=== PATIENT | female | born 1990 | race American Indian/Alaskan Native ===

== ENCOUNTER 2016-12-26 09:51 | Emergency (ER) | payer MEDICAID, OTHER ==
[2016-12-26 10:11] VITALS: BP 119/71
--- NOTE | 2016-12-26 12:21 | XRay Report ---
FACIAL BONES, 4 views: History: Left facial swelling. Multiple views of the facial bones fail to show any fractures or other bony abnormalities. The maxillary sinuses are clear. IMPRESSION: Normal study.
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
== END 2016-12-26 12:52 | disposition home or self-care (01) ==
LOC: ED 09:51
DX: S05.8X2A Other injuries of left eye and orbit, initial encounter (principal); S01.85XA Open bite of other part of head, initial encounter; S31.153A Open bite of abdominal wall, right lower quadrant without penetration into peritoneal cavity, initial encounter; F32.9 Major depressive disorder, single episode, unspecified; Z98.51 Tubal ligation status; Z79.899 Other long term (current) drug therapy; Y08.09XA Assault by strike by other specified type of sport equipment, initial encounter; W57.XXXA Bitten or stung by nonvenomous insect and other nonvenomous arthropods, initial encounter; Y93.89 Activity, other specified; Y99.8 Other external cause status; Y92.89 Other specified places as the place of occurrence of the external cause; F17.200 Nicotine dependence, unspecified, uncomplicated
CPT/HCPCS: 70150

== ENCOUNTER 2017-02-28 11:40 | Emergency (ER) | payer MEDICAID ==
[2017-02-28 12:38] VITALS: BP 103/65
[2017-02-28 16:18] LABS: Bilirubin,Urine NEG (Negative); Blood,Urine NEG (Negative); Ketones,Urine NEG (Negative); Leukocyte Esterase,Urine NEG (Negative); Mucus,Urine FEW /HPF; Nitrite,Urine NEG (Negative); Protein,Urine <15 mg/dL mg/dL (Negative); WBC,Urine < 1.0 /HPF (0.0-6.0)
[2017-02-28] MEDS ORDERED: TORADOL IM ONE (16:18)
[2017-02-28] MEDS ORDERED: VALIUM IM ONE (16:18)
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
--- NOTE | 2017-03-01 08:53 | XRay Report ---
AP and lateral of the cervical spine. History: Neck pain after fall. Findings: There is reversal of the lordotic curvature. No fractures, subluxations, or other acute findings are seen. Impression: No acute findings.
--- NOTE | 2017-03-01 08:54 | XRay Report ---
AP AND LATERAL LUMBOSACRAL SPINE: History: Pain after fall. The vertebral bodies are well mineralized and normal in alignment and vertebral height with well preserved interspace distances. The visualized portions of the posterior elements are normal. IMPRESSION: Normal study.
--- NOTE | 2017-03-01 08:55 | XRay Report ---
THORACIC SPINE: The bones are normally mineralized with well preserved vertebral height, alignment and interspace distances. No paraspinal soft tissue widening is noted. IMPRESSION: Normal study.
== END 2017-02-28 18:03 | disposition home or self-care (01) ==
LOC: ED 11:40
DX: S16.1XXA Strain of muscle, fascia and tendon at neck level, initial encounter (principal); M54.9 Dorsalgia, unspecified; W18.39XA Other fall on same level, initial encounter; Y93.89 Activity, other specified; Y92.89 Other specified places as the place of occurrence of the external cause; Y99.8 Other external cause status
CPT/HCPCS: 72040; 72070; 72100; 81001; 81025; 96372; 99283; J1885; J3360

== ENCOUNTER 2017-11-09 01:55 | Emergency (ER) | payer MEDICAID ==
[2017-11-09 02:21] VITALS: BP 114/66
--- NOTE | 2017-11-09 02:54 | XRay Report ---
FINAL REPORT EXAM: XR CHEST ROUTINE 2V HISTORY: chest pain, cough, preg test ordered TECHNIQUE: PA and lateral views of the chest were submitted. FINDINGS: The heart size and mediastinum appear normal. The lungs are clear. Pleural fluid is not seen. The bones and soft tissues do not show any acute changes. IMPRESSION: No active chest disease.
[2017-11-09 02:57] LABS: Basophils % (Auto) 0.7 % (0.0-1.8); Eosinophils % (Auto) 0.9 % (0.0-4.3); Hemoglobin 12.6 gm/dl (10.1-14.3); Mean Corpuscular HGB Conc 33 % (30-34); Mean Corpuscular Hemoglobin 31 pg (28-32); Mean Corpuscular Volume 94 fl (79-97); Platelet Count 238 K/mm3 (140-440); Red Blood Count 4.07 M/mm3 (3.65-5.03); Red Cell Distribution Width 15.3 % (13.2-15.2); White Blood Count 5.9 K/mm3 (4.5-11.0)
[2017-11-09] MEDS: DUONEB *Not for PRN Use IH ONE ×2 (03:10→03:16)
[2017-11-09 03:15] LABS: Alanine Aminotransferase 15 units/L (7-56); Albumin/Globulin Ratio 1.3 %; Alkaline Phosphatase 48 units/L (35-129); Anion Gap 15 mmol/L; BUN/Creatinine Ratio 18; Blood Urea Nitrogen 14 mg/dL (7-17); Calcium 8.9 mg/dL (8.4-10.2); Carbon Dioxide 25 mmol/L (22-30); Chloride 100.7 mmol/L (98-107); Glucose 89 mg/dL (65-100); Potassium 3.7 mmol/L (3.6-5.0); Sodium 137 mmol/L (137-145); Total Protein 7.1 g/dL (6.3-8.2)
[2017-11-09 03:33] LABS: Partial Thromboplastin Time 30.9 Sec. (24.2-36.6)
== END 2017-11-09 03:12 | disposition left against medical advice (07) ==
LOC: ED 01:55
DX: R06.00 Dyspnea, unspecified (principal); Z53.21 Procedure and treatment not carried out due to patient leaving prior to being seen by health care provider
CPT/HCPCS: 36415; 71020; 80053; 84484; 84703; 85025; 85610; 85730; 93005; 93010

== ENCOUNTER 2017-12-09 00:12 | Emergency (ER) | payer MEDICAID ==
[2017-12-09 03:13] VITALS: BP 116/80
--- NOTE | 2017-12-09 04:00 | Emergency Department Report ---
ED Rash HPI - HPI Chief Complaint: Skin Rash Stated Complaint: BED BUGS Time Seen by Provider: 12/09/17 03:55 Duration: 3 Days Location: Head Suspected Cause: Insect (Maude) Rash Symptoms: Yes Itching, No Facial Swelling, No Tongue/Oral Swelling, No Breathing Difficulties, No Choking Sensation, No Wheezing/Dyspnea, No Peeling, No Blistering, No Fever, No Lightheaded, No Malaise, No Myalgias Severity: mild ED Review of Systems ROS: Stated complaint: BED BUGS Other details as noted in HPI Comment: All other systems reviewed and negative ED Past Medical Hx - Past Medical History Hx Hypertension: Yes Hx Congestive Heart Failure: No Hx Diabetes: No Hx Deep Vein Thrombosis: No Hx Renal Disease: No Hx Sickle Cell Disease: No Hx Seizures: No Hx Psychiatric Treatment: Yes Hx Asthma: No Hx COPD: No Hx HIV: No - Surgical History Additional Surgical History: tubal ligation - Social History Smoking Status: Never Smoker Substance Use Type: None - Medications Home Medications: Home Medications Medication Instructions Recorded Confirmed Last Taken Type Ibuprofen [Motrin] 600 mg PO Q8H PRN #15 tablet 02/28/17 Unknown Rx methOCARBAMOL [Robaxin TAB] 500 mg PO Q6H PRN #15 tablet 02/28/17 Unknown Rx Permethrin [Elimite] 60 gm TP ONCE #60 cream..g. 12/09/17 Unknown Rx Rash Exam - Exam General: Vital signs noted. No distress. Alert and acting appropriately. HEENT: No Periorbital Edema, No Conjuctival Injection, No Chemosis, No Perioral Edema, No Tongue Edema, No Uvular Edema, No Compromised Airway, No Drooling Lungs: Yes Good Air Exchange (Normal Breath Sounds), No Wheezes, No Ronchi, No Stridor, No Cough, No Labored Respirations, No Retractions, No Use of Accessory Muscles, No Other Abnormal Lung Sounds Heart: Yes Regular, No Murmur Skin: No Other (small white spots within the hair. There is several areas where there is some small pustules present) Other: Positive: Abdomen Normal, Neurologic Normal, Musculoskeletal Normal ED Course Vital Signs 12/09/17 03:07 Temperature 98.1 F Pulse Rate 94 H Respiratory 16 Rate Blood Pressure 116/80 [Left] O2 Sat by Pulse 98 Oximetry ED Medical Decision Making - Medical Decision Making Patient will be treated for lice as well as scabies be discharged home. Patient is here with her entire family ill been staying on a old mattress lately. Patient and family have had some mild body itching but no rashes. Critical care attestation.: If time is entered above; I have spent that time in minutes in the direct care of this critically ill patient, excluding procedure time. ED Disposition Clinical Impression: Lice Disposition: DC-01 TO HOME OR SELFCARE Is pt being admited?: No Does the pt Need Aspirin: No Condition: Stable Prescriptions: Permethrin [Elimite] 60 gm TP ONCE #60 cream..g. Referrals: POONAM KIRK MD [Primary Care Provider] - 3-5 Days
== END 2017-12-09 05:00 | disposition home or self-care (01) ==
LOC: ED 00:12
DX: R21 Rash and other nonspecific skin eruption (principal)
CPT/HCPCS: 99282

== ENCOUNTER 2018-08-08 11:43 | Emergency (ER) | payer MEDICAID ==
--- NOTE | 2018-08-08 18:11 | Emergency Department Report ---
ED Rash HPI - HPI Chief Complaint: Skin Rash Stated Complaint: LFT CHEST RASH/LIGHT HEADED Time Seen by Provider: 08/08/18 17:45 Duration: 1 Day Location: Chest Suspected Cause: Unknown Rash Symptoms: Yes Itching (to anterior chest), No Facial Swelling, No Tongue/ Oral Swelling, No Breathing Difficulties, No Choking Sensation, No Wheezing/ Dyspnea, No Peeling, No Blistering, No Fever, No Lightheaded, No Malaise, No Myalgias Severity: mild (mild itching) Other History: Plan a year-old female here reported that she has itching that started yesterday and she is unaware of what caused it. She says she has some rash to her chest area. Denies any respiratory symptoms. Denies any fever or chills. Immunizations up-to-date. Patient said that she is concerned for having cancer symptoms. She thinks the rash is cancer. ED Review of Systems ROS: Stated complaint: LFT CHEST RASH/LIGHT HEADED Other details as noted in HPI Constitutional: denies: chills, fever Eyes: denies: vision change ENT: denies: ear pain, throat pain, congestion Respiratory: denies: cough, shortness of breath, wheezing Cardiovascular: denies: chest pain, palpitations Musculoskeletal: denies: back pain, joint swelling, arthralgia Skin: rash, pruritus. denies: lesions Hematological/Lymphatic: easy bruising ED Past Medical Hx - Past Medical History Previous Medical History?: Yes Hx Hypertension: Yes Hx Congestive Heart Failure: No Hx Diabetes: No Hx Deep Vein Thrombosis: No Hx Renal Disease: No Hx Sickle Cell Disease: No Hx Seizures: No Hx Psychiatric Treatment: Yes Hx Asthma: No Hx COPD: No Hx HIV: No - Surgical History Past Surgical History?: Yes Additional Surgical History: tubal ligation - Family History Family history: hypertension - Social History Smoking Status: Never Smoker Substance Use Type: None - Medications Home Medications: Home Medications Medication Instructions Recorded Confirmed Last Taken Type Ibuprofen [Motrin] 600 mg PO Q8H PRN #15 tablet 02/28/17 Unknown Rx methOCARBAMOL [Robaxin TAB] 500 mg PO Q6H PRN #15 tablet 02/28/17 Unknown Rx Permethrin [Elimite] 60 gm TP ONCE #60 cream..g. 12/09/17 Unknown Rx Multivitamin [Multiple Vitamins] 1 each PO QDAY 30 Days #30 tablet 08/08/18 Unknown Rx Triamcinolone 0.1% [Kenalog 0.1% 1 applic TP BID 7 Days #1 tube 08/08/18 Unknown Rx CREAM] hydrOXYzine HCL [Atarax] 25 mg PO Q6HR PRN #12 tablet 08/08/18 Unknown Rx Rash Exam - Exam General: Vital signs noted. No distress. Alert and acting appropriately. This is a 27-year-old female in no acute distress and nontoxic in appearance. HEENT: No Periorbital Edema, No Conjuctival Injection, No Chemosis, No Perioral Edema, No Tongue Edema, No Uvular Edema, No Compromised Airway, No Drooling Lungs: Yes Good Air Exchange (clear to auscultation bilaterally), No Wheezes, No Ronchi, No Stridor, No Cough, No Labored Respirations, No Retractions, No Use of Accessory Muscles, No Other Abnormal Lung Sounds Heart: Yes Regular (bradycardic at 54 bpm and asymptomatic), No Murmur Front/Back of Body, Lg (Color): 1 - Patient with maculopapular dark. 2 anterior left chest wall. No erythema , induration or fluctuance. Nontender to palpate. Skin: Yes Maculopapular Rash (localized anterior chest wall on the left side.), No Urticarial Rash, No Morbilliform rash, No Bulla(e), No Excoriations, No Weeping, No Tenderness, No Erythema, No Edema, No Encrustations, No Other Other: Positive: Abdomen Normal, Neurologic Normal, Musculoskeletal Normal ED Course Vital Signs 08/08/18 12:17 Temperature 99.0 F Pulse Rate 54 L Respiratory 16 Rate Blood Pressure 111/75 O2 Sat by Pulse 100 Oximetry - Reevaluation(s) Reevaluation #1: 08/08/18 18:21. Patient given the physical 60 mg by mouth and emergency room ED Medical Decision Making - Medical Decision Making This is a 27-year-old female here for skin rash and unknown cause. Assessment/plan 1: Contact dermatitis-sheet given Deltasone 60 mg by mouth and was sent home on Atarax and tone. Patient given instruction diagnosis, treatment plan medication. She was understanding and I discussed with her she needs to follow up with primary care next week. She was understanding patient requested multivitamin prescription. Patient stable vital signsafebrile. Triamcinolone cream and multivitamin. I also discussed with her the rash does not go away she is to follow up with dermatology and she voiced understanding. Critical care attestation.: If time is entered above; I have spent that time in minutes in the direct care of this critically ill patient, excluding procedure time. ED Disposition Clinical Impression: Contact dermatitis Qualifiers: Contact dermatitis type: unspecified Contact dermatitis trigger: unspecified trigger Qualified Code(s): L25.9 - Unspecified contact dermatitis, unspecified cause Disposition: DC- TO HOME OR SELFCARE Is pt being admited?: No Does the pt Need Aspirin: No Condition: Stable Instructions: Contact Dermatitis (ED) Additional Instructions: keep affected area clean and dry Dermatology and primary care as discussed Prescriptions: hydrOXYzine HCL [Atarax] 25 mg PO Q6HR PRN #12 tablet PRN Reason: Itching Multivitamin [Multiple Vitamins] 1 each PO QDAY 30 Days #30 tablet Triamcinolone 0.1% [Kenalog 0.1% CREAM] 1 applic TP BID 7 Days #1 tube Referrals: PRIMARY CARE, [Primary Care Provider] - 08/13/18 [facility] [Outside] - 08/13/18 THELMA JAQUEZ MD [Staff Physician] - 08/13/18
[2018-08-08] MEDS ORDERED: DELTASONE PO ONE (18:12)
[2018-08-08 19:01] VITALS: BP 117/73
== END 2018-08-08 19:03 | disposition home or self-care (01) ==
LOC: ED 11:43
DX: L25.9 Unspecified contact dermatitis, unspecified cause (principal); I10 Essential (primary) hypertension; Z98.51 Tubal ligation status; Z79.899 Other long term (current) drug therapy
CPT/HCPCS: 99282; J7512

== ENCOUNTER 2018-08-27 20:24 | Emergency (ER) | payer MEDICAID ==
[2018-08-27 20:36] VITALS: BP 103/64
[2018-08-27] MEDS ORDERED: TYLENOL PO ONE (21:03)
[2018-08-27] MEDS ORDERED: XYLOCAINE 2% INFILTRATI ONE (22:10)
[2018-08-27] MEDS ORDERED: TENIVAC IM ONE (23:00)
--- NOTE | 2018-08-27 23:18 | Emergency Department Report ---
ED Laceration HPI - HPI Chief Complaint: Wound/Laceration Stated Complaint: FACE TO RT CHEEK Time Seen by Provider: 08/27/18 21:54 Occurred When: Today (linear laceration to the right cheek over the zygomatic arch, full thickness) Severity: mild Tetanus Status: Not up to Date Laceration Symptoms: Yes Pain, No Foreign Body Sensation, No Numbness, No Weakness Other History: Reports playing football with her cousins and losing balance, falling, hitting the grill on her way down resulting in a laceration to her right cheek. Also has a right left healing. Orbital contusion and subconjunctival hemorrhage sustained from a note source of trauma. Patient does not wish to discuss this source of trauma. Reports that she does feel safe at home ED Review of Systems ROS: Stated complaint: FACE TO RT CHEEK Other details as noted in HPI Comment: All other systems reviewed and negative Constitutional: no symptoms reported Eyes: denies: eye pain, eye discharge, vision change ENT: denies: ear pain, throat pain Respiratory: denies: cough, shortness of breath, wheezing Cardiovascular: denies: chest pain, palpitations Endocrine: no symptoms reported Gastrointestinal: denies: abdominal pain, nausea, diarrhea Genitourinary: denies: urgency, dysuria, discharge Musculoskeletal: denies: back pain, joint swelling, arthralgia Skin: denies: rash, lesions Neurological: denies: headache, weakness, paresthesias Psychiatric: denies: anxiety, depression Hematological/Lymphatic: denies: easy bleeding, easy bruising ED Past Medical Hx - Past Medical History Previous Medical History?: Yes Hx Hypertension: No Hx Congestive Heart Failure: No Hx Diabetes: No Hx Deep Vein Thrombosis: No Hx Renal Disease: No Hx Sickle Cell Disease: No Hx Seizures: No Hx Psychiatric Treatment: Yes Hx Asthma: No Hx COPD: No Hx HIV: No - Surgical History Past Surgical History?: Yes Additional Surgical History: tubal ligation - Social History Smoking Status: Current Every Day Smoker Substance Use Type: Alcohol - Medications Home Medications: Home Medications Medication Instructions Recorded Confirmed Last Taken Type Ibuprofen [Motrin] 600 mg PO Q8H PRN #15 tablet 02/28/17 Unknown Rx methOCARBAMOL [Robaxin TAB] 500 mg PO Q6H PRN #15 tablet 02/28/17 Unknown Rx Permethrin [Elimite] 60 gm TP ONCE #60 cream..g. 12/09/17 Unknown Rx Multivitamin [Multiple Vitamins] 1 each PO QDAY 30 Days #30 tablet 08/08/18 Unknown Rx Triamcinolone 0.1% [Kenalog 0.1% 1 applic TP BID 7 Days #1 tube 08/08/18 Unknown Rx CREAM] hydrOXYzine HCL [Atarax] 25 mg PO Q6HR PRN #12 tablet 08/08/18 Unknown Rx Chlorhexidine Gluconate [Hibiclens] 236 ml TP BID 5 Days liquid 08/27/18 Unknown Rx Laceration Physical Exam - Exam General: Vital signs noted. No distress. Alert and acting appropriately. Full Body Front + Back: 1 - Laceration, 3 cm Laceration Exam: Yes Normal Distal CMS, No Foreign Body, No Exposed Tendon, Vessel, or Nerve, No Tendon Injury ED Course Vital Signs 08/27/18 20:34 Temperature 99.5 F Pulse Rate 87 Respiratory 18 Rate Blood Pressure 103/64 O2 Sat by Pulse 98 Oximetry - Laceration /Wound Repair Left Cheek Wound Location: face Wound's Depth, Shape: linear, irregular Wound Explored: clean Betadine Prep?: Yes Anesthesia: 1% Lidocaine Wound Repaired With: sutures Suture Size/Type: 6:0, proline Number of Sutures: 6 Layer Closure?: No Progress: Tolerated procedure well, no complications. Estimated blood loss minimal Critical care attestation.: If time is entered above; I have spent that time in minutes in the direct care of this critically ill patient, excluding procedure time. ED Disposition Clinical Impression: Laceration Disposition: DC-01 TO HOME OR SELFCARE Is pt being admited?: No Does the pt Need Aspirin: No Condition: Stable Instructions: Laceration (ED), Suture Care (ED) Prescriptions: Chlorhexidine Gluconate [Hibiclens] 236 ml TP BID 5 Days liquid Referrals: PRIMARY CARE, [Primary Care Provider] - 3-5 Days [facility] [Provider Group] - 3-5 Days
== END 2018-08-27 23:30 | disposition home or self-care (01) ==
LOC: ED 20:24
DX: S01.412A Laceration without foreign body of left cheek and temporomandibular area, initial encounter (principal); F17.200 Nicotine dependence, unspecified, uncomplicated; Z98.51 Tubal ligation status; W21.01XA Struck by football, initial encounter; Y93.61 Activity, american tackle football; Y92.39 Other specified sports and athletic area as the place of occurrence of the external cause; Y99.8 Other external cause status
CPT/HCPCS: 90471; 90714

== ENCOUNTER 2019-07-29 22:23 | Emergency (ER) | payer MEDICAID ==
[2019-07-30] MEDS ORDERED: DELTASONE PO ONE (02:07)
[2019-07-30] MEDS ORDERED: IBUPROFEN PO ONE (02:07)
--- NOTE | 2019-07-30 02:42 | Emergency Department Report ---
ED General Adult HPI - General Chief complaint: Dyspnea/Respdistress Stated complaint: LIDIA Source: patient, EMS Mode of arrival: Ambulatory Limitations: No Limitations - History of Present Illness -: Sudden, week(s) (1) Location: chest Radiation: non-radiation Severity scale (0 -10): 2 Quality: aching, dull Consistency: constant Improves with: none Worsens with: none Associated Symptoms: denies other symptoms, chest pain (pleuritic), cough. denies: confusion, diaphoresis, fever/chills, headaches, loss of appetite, malaise, nausea/vomiting, rash, seizure, shortness of breath, syncope Treatments Prior to Arrival: none - Related Data Previous Rx's Medication Instructions Recorded Last Taken Type methOCARBAMOL [Robaxin TAB] 500 mg PO Q6H PRN #15 tablet 02/28/17 Unknown Rx Permethrin [Elimite] 60 gm TP ONCE #60 cream..g. 12/09/17 Unknown Rx Multivitamin [Multiple Vitamins] 1 each PO QDAY 30 Days #30 tablet 08/08/18 Unknown Rx Triamcinolone 0.1% [Kenalog 0.1% 1 applic TP BID 7 Days #1 tube 08/08/18 Unknown Rx CREAM] hydrOXYzine HCL [Atarax] 25 mg PO Q6HR PRN #12 tablet 08/08/18 Unknown Rx Chlorhexidine Gluconate [Hibiclens] 236 ml TP BID 5 Days liquid 08/27/18 Unknown Rx Bacillus Coagulans [Probiotic] 1 each PO QDAY 30 Days #30 10/15/18 Unknown Rx capsule. Albuterol Sulfate [Proventil Hfa] 1 - 2 puff IH Q6H PRN #1 hfa.aer.ad 07/30/19 Unknown Rx Benzonatate [Tessalon Perles] 100 mg PO Q8HR #30 capsule 07/30/19 Unknown Rx Fluconazole [Diflucan TAB] 150 mg PO ONCE #1 tablet 07/30/19 Unknown Rx Ibuprofen [Motrin 600 MG tab] 600 mg PO Q8H PRN #15 tablet 07/30/19 Unknown Rx cephALEXin [Keflex] 500 mg PO Q8HR #30 cap 07/30/19 Unknown Rx methylPREDNISolone [Medrol 4MG 4 mg PO DAILY #21 tab.ds.pk 07/30/19 Unknown Rx DOSEPAK (21 tabs)] metroNIDAZOLE [Flagyl TAB] 500 mg PO Q12HR 7 Days #14 tab 07/30/19 Unknown Rx Allergies Allergy/AdvReac Type Severity Reaction Status Date / Time No Known Allergies Allergy Verified 04/06/15 05:29 ED Review of Systems ROS: Stated complaint: LIDIA Other details as noted in HPI Constitutional: denies: chills, fever Eyes: denies: eye pain, eye discharge, vision change ENT: congestion. denies: ear pain, throat pain Respiratory: cough. denies: shortness of breath, wheezing Cardiovascular: chest pain (pleuritic chest wall pain). denies: palpitations Endocrine: no symptoms reported Gastrointestinal: denies: abdominal pain, nausea, diarrhea Genitourinary: frequency, discharge. denies: urgency, dysuria Musculoskeletal: denies: back pain, joint swelling, arthralgia Skin: denies: rash, lesions Neurological: denies: headache, weakness, paresthesias Psychiatric: denies: anxiety, depression Hematological/Lymphatic: denies: easy bleeding, easy bruising ED Past Medical Hx - Past Medical History Hx Hypertension: No Hx Congestive Heart Failure: No Hx Diabetes: No Hx Deep Vein Thrombosis: No Hx Renal Disease: No Hx Sickle Cell Disease: No Hx Seizures: No Hx Psychiatric Treatment: Yes Hx Asthma: No Hx COPD: No Hx HIV: No - Surgical History Additional Surgical History: tubal ligation - Social History Smoking Status: Current Every Day Smoker Substance Use Type: None - Medications Home Medications: Home Medications Medication Instructions Recorded Confirmed Last Taken Type methOCARBAMOL [Robaxin TAB] 500 mg PO Q6H PRN #15 tablet 02/28/17 Unknown Rx Permethrin [Elimite] 60 gm TP ONCE #60 cream..g. 12/09/17 Unknown Rx Multivitamin [Multiple Vitamins] 1 each PO QDAY 30 Days #30 tablet 08/08/18 Unknown Rx Triamcinolone 0.1% [Kenalog 0.1% 1 applic TP BID 7 Days #1 tube 08/08/18 Unknown Rx CREAM] hydrOXYzine HCL [Atarax] 25 mg PO Q6HR PRN #12 tablet 08/08/18 Unknown Rx Chlorhexidine Gluconate [Hibiclens] 236 ml TP BID 5 Days liquid 08/27/18 Unknown Rx Bacillus Coagulans [Probiotic] 1 each PO QDAY 30 Days #30 10/15/18 Unknown Rx capsule.dr Albuterol Sulfate [Proventil Hfa] 1 - 2 puff IH Q6H PRN #1 hfa.aer.ad 07/30/19 Unknown Rx Benzonatate [Tessalon Perles] 100 mg PO Q8HR #30 capsule 07/30/19 Unknown Rx Fluconazole [Diflucan TAB] 150 mg PO ONCE #1 tablet 07/30/19 Unknown Rx Ibuprofen [Motrin 600 MG tab] 600 mg PO Q8H PRN #15 tablet 07/30/19 Unknown Rx cephALEXin [Keflex] 500 mg PO Q8HR #30 cap 07/30/19 Unknown Rx methylPREDNISolone [Medrol 4MG 4 mg PO DAILY #21 tab.ds.pk 07/30/19 Unknown Rx DOSEPAK (21 tabs)] metroNIDAZOLE [Flagyl TAB] 500 mg PO Q12HR 7 Days #14 tab 07/30/19 Unknown Rx ED Physical Exam - General Limitations: No Limitations General appearance: alert, in no apparent distress - Head Head exam: Present: atraumatic, normocephalic, normal inspection - Eye Eye exam: Present: normal appearance, PERRL, EOMI Pupils: Present: normal accommodation - ENT ENT exam: Present: normal orophraynx, mucous membranes moist, TM's normal bilaterally, normal external ear exam, other (grossly congested nasal passages) - Neck Neck exam: Present: normal inspection, full ROM - Respiratory Respiratory exam: Present: normal lung sounds bilaterally. Absent: respiratory distress, wheezes, rales, rhonchi, stridor, chest wall tenderness, accessory m uscle use, decreased breath sounds, prolonged expiratory - Cardiovascular Cardiovascular Exam: Present: regular rate, normal rhythm, normal heart sounds. Absent: systolic murmur, diastolic murmur, rubs, gallop - GI/Abdominal GI/Abdominal exam: Present: soft, normal bowel sounds. Absent: tenderness, guarding, rebound - Bi-manual exam: Present: other (Patient declined pelvic exam) - Extremities Exam Extremities exam: Present: normal inspection, full ROM, normal capillary refill - Back Exam Back exam: Present: normal inspection, full ROM. Absent: tenderness, CVA tenderness (R), CVA tenderness (L), muscle spasm, paraspinal tenderness, vertebral tenderness - Neurological Exam Neurological exam: Present: alert, oriented X3, CN II-XII intact, normal gait, r eflexes normal - Psychiatric Psychiatric exam: Present: normal affect, normal mood - Skin Skin exam: Present: warm, dry, intact, normal color. Absent: rash ED Course - Reevaluation(s) Reevaluation #1: 07/30/19 02:40 Patient is alert and oriented 3 and is not in distress with normal vital signs. Patient was discharged home on medications after being treated for pain in the ED. This on physical exam finding the patient's symptoms are likely due to acute upper respiratory infection and bronchitis. Patient was advised follow-up with her primary care physician in 7-10 days for reevaluation. Patient was counseled on they've a dental quitting tobacco smoking. Patient was advised to return to the ED immediately if symptoms get worse. ED Medical Decision Making - Medical Decision Making Patient is alert and oriented 3 and is not in distress with normal vital signs. Patient was discharged home on medications after being treated for pain in the ED. This on physical exam finding the patient's symptoms are likely due to acute upper respiratory infection and bronchitis. Patient was advised follow-up with her primary care physician in 7-10 days for reevaluation. Patient was counseled on they've a dental quitting tobacco smoking. Patient was advised to return to the ED immediately if symptoms get worse. - Differential Diagnosis acute URI; Acute bronchitis; Viral URI with cough Critical care attestation.: If time is entered above; I have spent that time in minutes in the direct care of this critically ill patient, excluding procedure time. ED Disposition Clinical Impression: Acute upper respiratory infection, Bacterial vaginosis Acute bronchitis Qualifiers: Bronchitis organism: unspecified organism Qualified Code(s): J20.9 - Acute bronchitis, unspecified Disposition: DC-01 TO HOME OR SELFCARE Is pt being admited?: No Does the pt Need Aspirin: No Condition: Stable Instructions: Acute Bronchitis (ED), Bacterial Vaginosis (ED), Upper Respiratory Infection (ED) Additional Instructions: Take medication with food, drink plenty of fluids and follow-up with your primary care physician in 7-10 days for reevaluation. Return to the ED immediately if symptoms get worse. Prescriptions: Fluconazole [Diflucan TAB] 150 mg PO ONCE #1 tablet metroNIDAZOLE [Flagyl TAB] 500 mg PO Q12HR 7 Days #14 tab cephALEXin [Keflex] 500 mg PO Q8HR #30 cap methylPREDNISolone [Medrol 4MG DOSEPAK (21 tabs)] 4 mg PO DAILY #21 tab.ds.pk Ibuprofen [Motrin 600 MG tab] 600 mg PO Q8H PRN #15 tablet PRN Reason: Pain Albuterol Sulfate [Proventil Hfa] 1 - 2 puff IH Q6H PRN #1 hfa.aer.ad PRN Reason: Dyspnea Benzonatate [Tessalon Perles] 100 mg PO Q8HR #30 capsule Referrals: PRIMARY CARE, [Primary Care Provider] - 3-5 Days Forms: STI Treatment and Prevention Time of Disposition: 02:43 Print Language: MONTSERRAT[place]
== END 2019-07-30 02:57 | disposition home or self-care (01) ==
LOC: ED 22:23
DX: J20.9 Acute bronchitis, unspecified (principal); J06.9 Acute upper respiratory infection, unspecified; N76.0 Acute vaginitis; B96.89 Other specified bacterial agents as the cause of diseases classified elsewhere
CPT/HCPCS: 93005; 93010; 99283; J7512

== ENCOUNTER 2020-01-10 23:02 | Emergency (ER) | payer MEDICAID ==
--- NOTE | 2020-01-11 00:22 | Emergency Department Report ---
ED General Adult HPI - General Chief complaint: Psych Stated complaint: SI Time Seen by Provider: 01/11/20 00:00 Source: patient, EMS Mode of arrival: Ambulatory Limitations: No Limitations - History of Present Illness Initial comments: Patient presents to the emergency department chief complaint of suicidal ideations. Patient states she feels like she is given up. Patient states she has a history of depression but does not currently take any medications. Patient denies having a plan. Patient states she also wants to harm other people by fighting them but denies wanting to kill other people. Patient denies auditory or visual hallucinations. -: unknown Radiation: non-radiation Severity scale (0 -10): 0 Improves with: none Worsens with: none Associated Symptoms: denies other symptoms Treatments Prior to Arrival: none - Related Data Previous Rx's Medication Instructions Recorded Last Taken Type methOCARBAMOL [Robaxin TAB] 500 mg PO Q6H PRN #15 tablet 02/28/17 Unknown Rx Permethrin [Elimite] 60 gm TP ONCE #60 cream..g. 12/09/17 Unknown Rx Multivitamin [Multiple Vitamins] 1 each PO QDAY 30 Days #30 tablet 08/08/18 Unknown Rx Triamcinolone 0.1% [Kenalog 0.1% 1 applic TP BID 7 Days #1 tube 08/08/18 Unknown Rx CREAM] hydrOXYzine HCL [Atarax] 25 mg PO Q6HR PRN #12 tablet 08/08/18 Unknown Rx Chlorhexidine Gluconate [Hibiclens] 236 ml TP BID 5 Days liquid 08/27/18 Unknown Rx Bacillus Coagulans [Probiotic] 1 each PO QDAY 30 Days #30 10/15/18 Unknown Rx capsule. Albuterol Sulfate [Proventil Hfa] 1 - 2 puff IH Q6H PRN #1 hfa.aer.ad 07/30/19 Unknown Rx Benzonatate [Tessalon Perles] 100 mg PO Q8HR #30 capsule 07/30/19 Unknown Rx Fluconazole [Diflucan TAB] 150 mg PO ONCE #1 tablet 07/30/19 Unknown Rx Ibuprofen [Motrin 600 MG tab] 600 mg PO Q8H PRN #15 tablet 07/30/19 Unknown Rx cephALEXin [Keflex] 500 mg PO Q8HR #30 cap 07/30/19 Unknown Rx methylPREDNISolone [Medrol 4MG 4 mg PO DAILY #21 tab.ds.pk 07/30/19 Unknown Rx DOSEPAK (21 tabs)] metroNIDAZOLE [Flagyl TAB] 500 mg PO Q12HR 7 Days #14 tab 07/30/19 Unknown Rx Allergies Allergy/AdvReac Type Severity Reaction Status Date / Time No Known Allergies Allergy Verified 01/10/20 23:27 ED Review of Systems ROS: Stated complaint: SI Other details as noted in HPI Constitutional: denies: chills, fever Eyes: denies: eye pain, eye discharge, vision change ENT: denies: ear pain, throat pain Respiratory: denies: cough, shortness of breath, wheezing Cardiovascular: denies: chest pain, palpitations Endocrine: no symptoms reported Gastrointestinal: denies: abdominal pain, nausea, diarrhea Genitourinary: denies: urgency, dysuria, discharge Musculoskeletal: denies: back pain, joint swelling, arthralgia Skin: denies: rash, lesions Neurological: denies: headache, weakness, paresthesias Psychiatric: suicidal thoughts. denies: anxiety, depression, auditory hallucinations, visual hallucinations, homicidal thoughts Hematological/Lymphatic: denies: easy bleeding, easy bruising ED Past Medical Hx - Past Medical History Previous Medical History?: Yes Hx Hypertension: No Hx Congestive Heart Failure: No Hx Diabetes: No Hx Deep Vein Thrombosis: No Hx Renal Disease: No Hx Sickle Cell Disease: No Hx Seizures: No Hx Psychiatric Treatment: Yes (depression, bipolar) Hx Asthma: No Hx COPD: No Hx HIV: No - Surgical History Past Surgical History?: Yes Additional Surgical History: tubal ligation - Social History Smoking Status: Never Smoker Substance Use Type: None - Medications Home Medications: Home Medications Medication Instructions Recorded Confirmed Last Taken Type methOCARBAMOL [Robaxin TAB] 500 mg PO Q6H PRN #15 tablet 02/28/17 Unknown Rx Permethrin [Elimite] 60 gm TP ONCE #60 cream..g. 12/09/17 Unknown Rx Multivitamin [Multiple Vitamins] 1 each PO QDAY 30 Days #30 tablet 08/08/18 Unknown Rx Triamcinolone 0.1% [Kenalog 0.1% 1 applic TP BID 7 Days #1 tube 08/08/18 Unknown Rx CREAM] hydrOXYzine HCL [Atarax] 25 mg PO Q6HR PRN #12 tablet 08/08/18 Unknown Rx Chlorhexidine Gluconate [Hibiclens] 236 ml TP BID 5 Days liquid 08/27/18 Unknown Rx Bacillus Coagulans [Probiotic] 1 each PO QDAY 30 Days #30 10/15/18 Unknown Rx capsule. Albuterol Sulfate [Proventil Hfa] 1 - 2 puff IH Q6H PRN #1 hfa.aer.ad 07/30/19 Unknown Rx Benzonatate [Tessalon Perles] 100 mg PO Q8HR #30 capsule 07/30/19 Unknown Rx Fluconazole [Diflucan TAB] 150 mg PO ONCE #1 tablet 07/30/19 Unknown Rx Ibuprofen [Motrin 600 MG tab] 600 mg PO Q8H PRN #15 tablet 07/30/19 Unknown Rx cephALEXin [Keflex] 500 mg PO Q8HR #30 cap 07/30/19 Unknown Rx methylPREDNISolone [Medrol 4MG 4 mg PO DAILY #21 tab.ds.pk 07/30/19 Unknown Rx DOSEPAK (21 tabs)] metroNIDAZOLE [Flagyl TAB] 500 mg PO Q12HR 7 Days #14 tab 07/30/19 Unknown Rx ED Physical Exam - General Limitations: No Limitations General appearance: alert, in no apparent distress - Head Head exam: Present: atraumatic, normocephalic - Eye Eye exam: Present: normal appearance, PERRL, EOMI - ENT ENT exam: Present: mucous membranes moist - Neck Neck exam: Present: normal inspection - Respiratory Respiratory exam: Present: normal lung sounds bilaterally. Absent: respiratory distress - Cardiovascular Cardiovascular Exam: Present: regular rate, normal rhythm. Absent: systolic murmur, diastolic murmur, rubs, gallop - GI/Abdominal GI/Abdominal exam: Present: soft, normal bowel sounds. Absent: distended, tenderness - Extremities Exam Extremities exam: Present: normal inspection - Back Exam Back exam: Present: normal inspection - Neurological Exam Neurological exam: Present: alert, oriented X3 - Psychiatric Psychiatric exam: Present: normal mood, depressed, flat affect - Skin Skin exam: Present: warm, dry, intact, normal color. Absent: rash ED Course Vital Signs 01/10/20 23:30 Temperature 97.6 F Pulse Rate 75 Respiratory 16 Rate Blood Pressure 103/63 O2 Sat by Pulse 100 Oximetry ED Medical Decision Making - Lab Data Result diagrams: 01/11/20 00:06 01/11/20 00:06 Lab Results 01/10/20 01/10/20 01/11/20 Range/Units Unknown Unknown 00:06 WBC (4.5-11.0) K/mm3 RBC (3.65-5.03) M/mm3 Hgb (10.1-14.3) gm/dl Hct (30.3-42.9) % MCV (79-97) fl MCH (28-32) pg MCHC (30-34) % RDW (13.2-15.2) % Plt Count (140-440) K/mm3 Lymph % (Auto) (13.4-35.0) % [place] % (Auto) (0.0-7.3) % Eos % (Auto) (0.0-4.3) % Baso % (Auto) (0.0-1.8) % Lymph # (1.2-5.4) K/mm3 [place] # (0.0-0.8) K/mm3 Eos # (0.0-0.4) K/mm3 Baso # (0.0-0.1) K/mm3 Seg Neutrophils % (40.0-70.0) % Seg Neutrophils # (1.8-7.7) K/mm3 Sodium (137-145) mmol/L Potassium (3.6-5.0) mmol/L Chloride (98-107) mmol/L Carbon Dioxide (22-30) mmol/L Anion Gap mmol/L BUN (7-17) mg/dL Creatinine (0.7-1.2) mg/dL Estimated GFR ml/min BUN/Creatinine Ratio % Glucose (65-100) mg/dL Calcium (8.4-10.2) mg/dL HCG, Qual (Negative) Urine Color Yellow (Yellow) Urine Turbidity Clear (Clear) Urine pH 6.0 (5.0-7.0) Ur Specific [place] 1.021 (1.003-1.030) Urine Protein <15 mg/dl (Negative) mg/dL Urine Glucose (UA) Neg (Negative) mg/dL Urine Ketones Neg (Negative) mg/dL Urine Blood Mod (Negative) Urine Nitrite Neg (Negative) Urine Bilirubin Neg (Negative) Urine Urobilinogen < 2.0 (<2.0) mg/dL Ur Leukocyte Esterase Tr (Negative) Urine WBC (Auto) 1.0 (0.0-6.0) /HPF Urine RBC (Auto) 5.0 (0.0-6.0) /HPF U Epithel Cells (Auto) 8.0 (0-13.0) /HPF Urine Bacteria (Auto) 1+ (Negative) /HPF Urine Mucus Few /HPF Salicylates < 0.3 L (2.8-20.0) mg/dL Urine Opiates Screen Presumptive negative Urine Methadone Screen Presumptive negative Acetaminophen (10.0-30.0) ug/mL Ur Barbiturates Screen Presumptive negative Ur Phencyclidine Scrn Presumptive negative Ur Amphetamines Screen Presumptive negative U Benzodiazepines Scrn Presumptive negative Urine Cocaine Screen Presumptive negative U Marijuana (THC) Screen Presumptive negative Drugs of Abuse Note Disclamer Plasma/Serum Alcohol (0-0.07) % 01/11/20 01/11/20 01/11/20 Range/Units 00:06 00:06 00:06 WBC (4.5-11.0) K/mm3 RBC (3.65-5.03) M/mm3 Hgb (10.1-14.3) gm/dl Hct (30.3-42.9) % MCV (79-97) fl MCH (28-32) pg MCHC (30-34) % RDW (13.2-15.2) % Plt Count (140-440) K/mm3 Lymph % (Auto) (13.4-35.0) % [place] % (Auto) (0.0-7.3) % Eos % (Auto) (0.0-4.3) % Baso % (Auto) (0.0-1.8) % Lymph # (1.2-5.4) K/mm3 [place] # (0.0-0.8) K/mm3 Eos # (0.0-0.4) K/mm3 Baso # (0.0-0.1) K/mm3 Seg Neutrophils % (40.0-70.0) % Seg Neutrophils # (1.8-7.7) K/mm3 Sodium 139 (137-145) mmol/L Potassium 3.6 (3.6-5.0) mmol/L Chloride 101.4 (98-107) mmol/L Carbon Dioxide 23 (22-30) mmol/L Anion Gap 18 mmol/L BUN 12 (7-17) mg/dL Creatinine 0.7 (0.7-1.2) mg/dL Estimated GFR > 60 ml/min BUN/Creatinine Ratio 17 % Glucose 94 (65-100) mg/dL Calcium 9.4 (8.4-10.2) mg/dL HCG, Qual (Negative) Urine Color (Yellow) Urine Turbidity (Clear) Urine pH (5.0-7.0) Ur Specific [place] (1.003-1.030) Urine Protein (Negative) mg/dL Urine Glucose (UA) (Negative) mg/dL Urine Ketones (Negative) mg/dL Urine Blood (Negative) Urine Nitrite (Negative) Urine Bilirubin (Negative) Urine Urobilinogen (<2.0) mg/dL Ur Leukocyte Esterase (Negative) Urine WBC (Auto) (0.0-6.0) /HPF Urine RBC (Auto) (0.0-6.0) /HPF U Epithel Cells (Auto) (0-13.0) /HPF Urine Bacteria (Auto) (Negative) /HPF Urine Mucus /HPF Salicylates (2.8-20.0) mg/dL Urine Opiates Screen Urine Methadone Screen Acetaminophen < 5.0 L (10.0-30.0) ug/mL Ur Barbiturates Screen Ur Phencyclidine Scrn Ur Amphetamines Screen U Benzodiazepines Scrn Urine Cocaine Screen U Marijuana (THC) Screen Drugs of Abuse Note Plasma/Serum Alcohol < 0.01 (0-0.07) % 01/11/20 01/11/20 Range/Units 00:06 00:06 WBC 7.7 (4.5-11.0) K/mm3 RBC 4.06 (3.65-5.03) M/mm3 Hgb 12.5 (10.1-14.3) gm/dl Hct 37.5 (30.3-42.9) % MCV 92 (79-97) fl MCH 31 (28-32) pg MCHC 33 (30-34) % RDW 17.8 H (13.2-15.2) % Plt Count 231 (140-440) K/mm3 Lymph % (Auto) 25.6 (13.4-35.0) % [place] % (Auto) 9.5 H (0.0-7.3) % Eos % (Auto) 0.7 (0.0-4.3) % Baso % (Auto) 0.8 (0.0-1.8) % Lymph # 2.0 (1.2-5.4) K/mm3 [place] # 0.7 (0.0-0.8) K/mm3 Eos # 0.1 (0.0-0.4) K/mm3 Baso # 0.1 (0.0-0.1) K/mm3 Seg Neutrophils % 63.4 (40.0-70.0) % Seg Neutrophils # 4.9 (1.8-7.7) K/mm3 Sodium (137-145) mmol/L Potassium (3.6-5.0) mmol/L Chloride (98-107) mmol/L Carbon Dioxide (22-30) mmol/L Anion Gap mmol/L BUN (7-17) mg/dL Creatinine (0.7-1.2) mg/dL Estimated GFR ml/min BUN/Creatinine Ratio % Glucose (65-100) mg/dL Calcium (8.4-10.2) mg/dL HCG, Qual Negative (Negative) Urine Color (Yellow) Urine Turbidity (Clear) Urine pH (5.0-7.0) Ur Specific [place] (1.003-1.030) Urine Protein (Negative) mg/dL Urine Glucose (UA) (Negative) mg/dL Urine Ketones (Negative) mg/dL Urine Blood (Negative) Urine Nitrite (Negative) Urine Bilirubin (Negative) Urine Urobilinogen (<2.0) mg/dL Ur Leukocyte Esterase (Negative) Urine WBC (Auto) (0.0-6.0) /HPF Urine RBC (Auto) (0.0-6.0) /HPF U Epithel Cells (Auto) (0-13.0) /HPF Urine Bacteria (Auto) (Negative) /HPF Urine Mucus /HPF Salicylates (2.8-20.0) mg/dL Urine Opiates Screen Urine Methadone Screen Acetaminophen (10.0-30.0) ug/mL Ur Barbiturates Screen Ur Phencyclidine Scrn Ur Amphetamines Screen U Benzodiazepines Scrn Urine Cocaine Screen U Marijuana (THC) Screen Drugs of Abuse Note Plasma/Serum Alcohol (0-0.07) % - Medical Decision Making The patient is medically cleared Awaiting mental health evaluation Critical care attestation.: If time is entered above; I have spent that time in minutes in the direct care of this critically ill patient, excluding procedure time. ED Disposition Clinical Impression: Suicidal ideations Disposition: DC/TX-65 PSY HOSP/PSY UNIT Is pt being admited?: No Does the pt Need Aspirin: No Condition: Stable Referrals: PRIMARY CARE, [Primary Care Provider] - 3-5 Days
[2020-01-11 00:36] LABS: Bacteria,Urine 1+ /HPF (Negative); Bilirubin,Urine NEG (Negative); Blood,Urine MOD (Negative); Color,Urine Yellow (Yellow); Mucus,Urine FEW /HPF; Protein,Urine <15 mg/dL mg/dL (Negative); Urobilinogen,Urine < 2.0 mg/dL (<2.0)
[2020-01-11 00:37] LABS: Basophils # (Auto) 0.1 K/mm3 (0.0-0.1); Basophils % (Auto) 0.8 % (0.0-1.8); Eosinophils # (Auto) 0.1 K/mm3 (0.0-0.4); Eosinophils % (Auto) 0.7 % (0.0-4.3); Hematocrit 37.5 % (30.3-42.9); Hemoglobin 12.5 gm/dl (10.1-14.3); Lymphocytes % (Auto) 25.6 % (13.4-35.0); Mean Corpuscular HGB Conc 33 % (30-34); Mean Corpuscular Volume 92 fl (79-97); Monocytes # (Auto) 0.7 K/mm3 (0.0-0.8); Monocytes % (Auto) 9.5 % (0.0-7.3); Platelet Count 231 K/mm3 (140-440); Red Blood Count 4.06 M/mm3 (3.65-5.03); Red Cell Distribution Width 17.8 % (13.2-15.2)
[2020-01-11 00:45] LABS: BUN/Creatinine Ratio 17; Blood Urea Nitrogen 12 mg/dL (7-17); Calcium 9.4 mg/dL (8.4-10.2); Hemolysis Index 7
[2020-01-11 00:48] LABS: Amphetamine Screen,Urine PRESUMPTIVE NEGATIVE; Benzodiazepines Screen,Urine PRESUMPTIVE NEGATIVE; Cannabinoid Screen,Urine PRESUMPTIVE NEGATIVE; Cocaine Screen,Urine PRESUMPTIVE NEGATIVE; Methadone Screen,Urine PRESUMPTIVE NEGATIVE; Opiate Screen,Urine PRESUMPTIVE NEGATIVE
[2020-01-11] MEDS ORDERED: ACETAMINOPHEN 325 MG TAB PO ONE (09:25)
[2020-01-11] MEDS ORDERED: diphenhydrAMINE 25 MG CAP PO ONE (11:28)
[2020-01-11 14:46] VITALS: BP 97/57
== END 2020-01-11 19:30 ==
LOC: ED 23:02
DX: R45.851 Suicidal ideations (principal); F32.9 Major depressive disorder, single episode, unspecified; Z98.51 Tubal ligation status; Z79.899 Other long term (current) drug therapy
CPT/HCPCS: 36415; 80048; 80307; 80320; 81001; 84703; 85025; G0480

== ENCOUNTER 2020-06-05 19:21 | Emergency (ER) | payer SELFPAY ==
[2020-06-05 19:34] VITALS: BP 109/62
--- NOTE | 2020-06-05 22:06 | Emergency Department Report ---
ED Rash HPI - HPI Chief Complaint: Skin Rash Stated Complaint: SKIN IRRITATION,BLOODY STOOL, VOMITING Time Seen by Provider: 06/05/20 22:02 Duration: 2 Days Location: Head, Neck, Chest, Back, Upper Extremities Suspected Cause: Unknown Rash Symptoms: Yes Itching Severity: severe Other History: 29-year-old -[place] female presents to the emergency room for generalized skin irritation/rash that started yesterday. Patient states she has been using [id number] calamine lotion which is not helping. Patient states that she did have a change in her routine and changed her soap. She states that the rash is very itchy. Patient does admit that she lives in a hotel. And she recently was discharged out of shelter for 3 months. ED Review of Systems ROS: Stated complaint: SKIN IRRITATION,BLOODY STOOL, VOMITING Other details as noted in HPI Comment: All other systems reviewed and negative ED Past Medical Hx - Past Medical History Previous Medical History?: Yes Hx Hypertension: No Hx Congestive Heart Failure: No Hx Diabetes: No Hx Deep Vein Thrombosis: No Hx Renal Disease: No Hx Sickle Cell Disease: No Hx Seizures: No Hx Psychiatric Treatment: Yes (depression, bipolar) Hx Asthma: No Hx COPD: No Hx HIV: No - Surgical History Past Surgical History?: Yes Additional Surgical History: tubal ligation - Social History Smoking Status: Never Smoker Substance Use Type: None - Medications Home Medications: Home Medications Medication Instructions Recorded Confirmed Last Taken Type methOCARBAMOL [Robaxin TAB] 500 mg PO Q6H PRN #15 tablet 02/28/17 Unknown Rx Permethrin [Elimite] 60 gm TP ONCE #60 cream..g. 12/09/17 Unknown Rx Multivitamin [Multiple Vitamins] 1 each PO QDAY 30 Days #30 tablet 08/08/18 Unknown Rx Chlorhexidine Gluconate [Hibiclens] 236 ml TP BID 5 Days liquid 08/27/18 Unknown Rx Bacillus Coagulans [Probiotic] 1 each PO QDAY 30 Days #30 10/15/18 Unknown Rx capsule. Albuterol Sulfate [Proventil Hfa] 1 - 2 puff IH Q6H PRN #1 hfa.aer.ad 07/30/19 Unknown Rx Benzonatate [Tessalon Perles] 100 mg PO Q8HR #30 capsule 07/30/19 Unknown Rx Fluconazole (Nf) [Diflucan TAB] 150 mg PO ONCE #1 tablet 07/30/19 Unknown Rx Ibuprofen [Motrin 600 MG tab] 600 mg PO Q8H PRN #15 tablet 07/30/19 Unknown Rx cephALEXin [Keflex] 500 mg PO Q8HR #30 cap 07/30/19 Unknown Rx methylPREDNISolone [Medrol 4MG 4 mg PO DAILY #21 tab.ds.pk 07/30/19 Unknown Rx DOSEPAK (21 tabs)] metroNIDAZOLE [Flagyl TAB] 500 mg PO Q12HR 7 Days #14 tab 07/30/19 Unknown Rx Triamcinolone 0.1% [Kenalog 0.1% 1 applic TP BID 7 Days #1 tube 06/05/20 Unknown Rx CREAM] hydrOXYzine HCL [Atarax] 25 mg PO Q6HR PRN #12 tablet 06/05/20 Unknown Rx predniSONE [Deltasone] 20 mg PO QDAY #5 tab 06/05/20 Unknown Rx Rash Exam - Exam General: Vital signs noted. No distress. Alert and acting appropriately. HEENT: No Periorbital Edema, No Conjuctival Injection, No Chemosis, No Perioral Edema, No Tongue Edema, No Uvular Edema, No Compromised Airway, No Drooling Lungs: Yes Good Air Exchange (Normal Breath Sounds), No Wheezes, No [place], No Stridor, No Cough, No Labored Respirations, No Retractions, No Use of Accessory Muscles, No Other Abnormal Lung Sounds Heart: Yes Regular, No Murmur Skin: Yes Maculopapular Rash Other: Positive: Abdomen Normal, Neurologic Normal, Musculoskeletal Normal ED Course Vital Signs 06/05/20 19:28 Temperature 98.9 F Pulse Rate 95 H Respiratory 18 Rate Blood Pressure 109/62 O2 Sat by Pulse 99 Oximetry ED Medical Decision Making - Medical Decision Making 29-year-old -[place] female presents to the emergency room for generalized skin irritation/rash that started yesterday. Patient states she has been using [id number] calamine lotion which is not helping. Patient states that she did have a change in her routine and changed her soap. She states that the rash is very itchy. Patient does admit that she lives in a hotel. And she recently was discharged out of shelter for 3 months. Patient is given a prescription for Atarax, prednisone and triamcinolone cream and a referral to dermatology. Critical care attestation.: If time is entered above; I have spent that time in minutes in the direct care of this critically ill patient, excluding procedure time. ED Disposition Clinical Impression: Rash Disposition: DC-01 TO HOME OR SELFCARE Is pt being admited?: No Does the pt Need Aspirin: No Condition: Stable Instructions: Acute Rash (ED) Additional Instructions: Take medications as prescribed. 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 Prescriptions: hydrOXYzine HCL [Atarax] 25 mg PO Q6HR PRN #12 tablet PRN Reason: Itching predniSONE [Deltasone] 20 mg PO QDAY #5 tab Triamcinolone 0.1% [Kenalog 0.1% CREAM] 1 applic TP BID 7 Days #1 tube Referrals: [facility] [Provider Group] - 3-5 Days Forms: Work/School Release Form(ED)
[2020-06-05] MEDS ORDERED: diphenhydrAMINE 25 MG CAP PO ONE ×2 (22:17→22:20)
== END 2020-06-05 22:37 | disposition home or self-care (01) ==
LOC: ED 19:21
DX: R21 Rash and other nonspecific skin eruption (principal); L29.9 Pruritus, unspecified; F32.9 Major depressive disorder, single episode, unspecified; Z98.51 Tubal ligation status; Z79.899 Other long term (current) drug therapy
CPT/HCPCS: 99282

== ENCOUNTER 2021-01-02 15:08 | Emergency (ER) | payer SELFPAY ==
--- NOTE | 2021-01-02 15:40 | Event Note ---
ED Screening Note Date of service: 01/02/21 Time: 15:34 ED Screening Note: 30 y/o female comes in for SI with plan to jump off a bridge. Has history of bipolar and scizd. Has been of meds. has been hospitalized for mental health in the past with good out comes. This initial assessment/diagnostic orders/clinical plan/treatment(s) is/are subject to change based on patients health status, clinical progression and re- assessment by fellow clinical providers in the ED. Further treatment and workup at subsequent clinical providers discretion. Patient/guardian urged not to elope from the ED as their condition may be serious if not clinically assessed and managed. Initial orders include:
[2021-01-02 16:12] LABS: BUN/Creatinine Ratio 13; Blood Urea Nitrogen 10 mg/dL (7-17); Hemolysis Index 6
[2021-01-02 16:21] LABS: Basophils % (Auto) 0.6 % (0.0-1.8); Eosinophils % (Auto) 0.5 % (0.0-4.3); Hematocrit 39.2 % (30.3-42.9); Lymphocytes # (Auto) 1.6 K/mm3 (1.2-5.4); Lymphocytes % (Auto) 26.3 % (13.4-35.0); Mean Corpuscular HGB Conc 33 % (30-34); Mean Corpuscular Volume 94 fl (79-97); Monocytes # (Auto) 0.8 K/mm3 (0.0-0.8); Monocytes % (Auto) 13.3 % (0.0-7.3); Platelet Count 259 K/mm3 (140-440); Red Blood Count 4.19 M/mm3 (3.65-5.03)
[2021-01-02 16:25] LABS: Amphetamine Screen,Urine Negative; Benzodiazepines Screen,Urine Negative; Cannabinoid Screen,Urine Negative; Cocaine Screen,Urine Negative; Methadone Screen,Urine Negative; Opiate Screen,Urine Negative
[2021-01-02 16:42] LABS: HCG Qualitative,Urine Negative (Negative)
[2021-01-02 16:43] LABS: Bacteria,Urine 1+ /HPF (Negative); Bilirubin,Urine NEG (Negative); Blood,Urine NEG (Negative); Color,Urine Straw (Yellow); Protein,Urine <15 mg/dL mg/dL (Negative); Urobilinogen,Urine < 2.0 mg/dL (<2.0)
--- NOTE | 2021-01-02 16:53 | Emergency Department Report ---
ED Psych HPI - General Chief Complaint: Psych Stated Complaint: SI Time Seen by Provider: 01/02/21 16:17 Source: patient Mode of arrival: Ambulatory Limitations: No Limitations - History of Present Illness Initial Comments: Chief complaint: Suicidal plan to jump off bridge HPI: This is a 30-year-old female with history of bipolar affective disorder who presents with depression and suicidal ideation. She plans to jump off a bridge. She has been followed by psychiatrist at [facility] clinic. She has been out of her psychiatric medications Zyprexa and Prozac for over a month. She has several social stressors. She does not have custody of her child. She is living with her significant other in a hotel room. She formally worked at [employer]. She also formally worked in a [employer] department. However she is now unemployed. She states that her family is "scattered". She has had a previous suicide attempt as an adolescent. She is also been hospitalized for psychiatric care in the past. She currently denies any physical complaints. She does not have history of chronic medical illness. MD Complaint: suicidal ideation -: Gradual, days(s) (2) Associated Psychiatric Symptoms: suicidal ideation History of same: Yes Quality: constant Improves With: none Worsens With: none Context: not taking psychiatric, significant life stressor Associated Symptoms: denies other symptoms Treatments Prior to Arrival: none If Self Harm: has plan - Related Data Previous Rx's Medication Instructions Recorded Last Taken Type methOCARBAMOL [Robaxin TAB] 500 mg PO Q6H PRN #15 tablet 02/28/17 Unknown Rx Permethrin [Elimite] 60 gm TP ONCE #60 cream..g. 12/09/17 Unknown Rx Multivitamin [Multiple Vitamins] 1 each PO QDAY 30 Days #30 tablet 08/08/18 Unknown Rx Chlorhexidine Gluconate [Hibiclens] 236 ml TP BID 5 Days liquid 08/27/18 Unknown Rx Bacillus Coagulans [Probiotic] 1 each PO QDAY 30 Days #30 10/15/18 Unknown Rx capsule. Albuterol Sulfate [Proventil Hfa] 1 - 2 puff IH Q6H PRN #1 hfa.aer.ad 07/30/19 Unknown Rx Benzonatate [Tessalon Perles] 100 mg PO Q8HR #30 capsule 07/30/19 Unknown Rx Fluconazole (Nf) [Diflucan TAB] 150 mg PO ONCE #1 tablet 07/30/19 Unknown Rx Ibuprofen [Motrin 600 MG tab] 600 mg PO Q8H PRN #15 tablet 07/30/19 Unknown Rx cephALEXin [Keflex] 500 mg PO Q8HR #30 cap 07/30/19 Unknown Rx methylPREDNISolone [Medrol 4MG 4 mg PO DAILY #21 tab.ds.pk 07/30/19 Unknown Rx DOSEPAK (21 tabs)] metroNIDAZOLE [Flagyl TAB] 500 mg PO Q12HR 7 Days #14 tab 07/30/19 Unknown Rx Triamcinolone 0.1% [Kenalog 0.1% 1 applic TP BID 7 Days #1 tube 06/05/20 Unknown Rx CREAM] hydrOXYzine HCL [Atarax] 25 mg PO Q6HR PRN #12 tablet 06/05/20 Unknown Rx predniSONE [Deltasone] 20 mg PO QDAY #5 tab 06/05/20 Unknown Rx Allergies Allergy/AdvReac Type Severity Reaction Status Date / Time No Known Allergies Allergy Verified 01/10/20 23:27 ED Review of Systems ROS: Stated complaint: SI Other details as noted in HPI Comment: All other systems reviewed and negative Constitutional: denies: fever, malaise Respiratory: denies: cough, shortness of breath Gastrointestinal: denies: abdominal pain, nausea, vomiting Psychiatric: depression, suicidal thoughts ED Past Medical Hx - Past Medical History Previous Medical History?: Yes Hx Hypertension: No Hx Congestive Heart Failure: No Hx Diabetes: No Hx Deep Vein Thrombosis: No Hx Renal Disease: No Hx Sickle Cell Disease: No Hx Seizures: No Hx Psychiatric Treatment: Yes (depression, bipolar) Hx Asthma: No Hx COPD: No Hx HIV: No - Surgical History Past Surgical History?: Yes Additional Surgical History: tubal ligation - Social History Smoking Status: Current Some Day Smoker Substance Use Type: None - Medications Home Medications: Home Medications Medication Instructions Recorded Confirmed Last Taken Type methOCARBAMOL [Robaxin TAB] 500 mg PO Q6H PRN #15 tablet 02/28/17 Unknown Rx Permethrin [Elimite] 60 gm TP ONCE #60 cream..g. 12/09/17 Unknown Rx Multivitamin [Multiple Vitamins] 1 each PO QDAY 30 Days #30 tablet 08/08/18 Unknown Rx Chlorhexidine Gluconate [Hibiclens] 236 ml TP BID 5 Days liquid 08/27/18 Unknown Rx Bacillus Coagulans [Probiotic] 1 each PO QDAY 30 Days #30 10/15/18 Unknown Rx ke.dr Albuterol Sulfate [Proventil Hfa] 1 - 2 puff IH Q6H PRN #1 hfa.aer.ad 07/30/19 Unknown Rx Benzonatate [Tessalon Perles] 100 mg PO Q8HR #30 capsule 07/30/19 Unknown Rx Fluconazole (Nf) [Diflucan TAB] 150 mg PO ONCE #1 tablet 07/30/19 Unknown Rx Ibuprofen [Motrin 600 MG tab] 600 mg PO Q8H PRN #15 tablet 07/30/19 Unknown Rx cephALEXin [Keflex] 500 mg PO Q8HR #30 cap 07/30/19 Unknown Rx methylPREDNISolone [Medrol 4MG 4 mg PO DAILY #21 tab.ds.pk 07/30/19 Unknown Rx DOSEPAK (21 tabs)] metroNIDAZOLE [Flagyl TAB] 500 mg PO Q12HR 7 Days #14 tab 07/30/19 Unknown Rx Triamcinolone 0.1% [Kenalog 0.1% 1 applic TP BID 7 Days #1 tube 06/05/20 Unknown Rx CREAM] hydrOXYzine HCL [Atarax] 25 mg PO Q6HR PRN #12 tablet 06/05/20 Unknown Rx predniSONE [Deltasone] 20 mg PO QDAY #5 tab 06/05/20 Unknown Rx ED Physical Exam - General Limitations: No Limitations General appearance: alert, in no apparent distress, other (Poor hygiene, dishe veled clothing and hair, currently eating food) - Head Head exam: Present: atraumatic, normocephalic - Eye Eye exam: Present: normal appearance - ENT ENT exam: Present: mucous membranes moist - Neck Neck exam: Present: normal inspection, full ROM - Respiratory Respiratory exam: Present: normal lung sounds bilaterally. Absent: respiratory distress, wheezes, rales, rhonchi - Cardiovascular Cardiovascular Exam: Present: regular rate, normal rhythm, normal heart sounds. Absent: systolic murmur, diastolic murmur, rubs, gallop - GI/Abdominal GI/Abdominal exam: Present: soft, normal bowel sounds. Absent: distended, tenderness, guarding, rebound - Extremities Exam Extremities exam: Present: normal inspection - Neurological Exam Neurological exam: Present: alert, oriented X3 - Psychiatric Psychiatric exam: Present: depressed, flat affect - Skin Skin exam: Present: warm, dry, intact, normal color. Absent: rash ED Course Vital Signs 01/02/21 01/02/21 15:11 16:07 Temperature 98.6 F Pulse Rate 87 Respiratory 18 16 Rate Blood Pressure 92/64 O2 Sat by Pulse 99 Oximetry ED Medical Decision Making - Lab Data Result diagrams: 01/02/21 15:44 01/02/21 15:44 Laboratory Results - last 24 hr 01/02/21 01/02/21 01/02/21 15:44 15:44 15:44 WBC 6.0 RBC 4.19 Hgb 13.0 Hct 39.2 MCV 94 MCH 31 MCHC 33 RDW 17.0 H Plt Count 259 Lymph % (Auto) 26.3 [place] % (Auto) 13.3 H Eos % (Auto) 0.5 Baso % (Auto) 0.6 Lymph # (Auto) 1.6 [place] # (Auto) 0.8 Eos # (Auto) 0.0 Baso # (Auto) 0.0 Seg Neutrophils % 59.3 Seg Neutrophils # 3.6 Sodium 136 L Potassium 3.7 Chloride 102.1 Carbon Dioxide 29 Anion Gap 9 BUN 10 Creatinine 0.8 Estimated GFR > 60 BUN/Creatinine Ratio 13 Glucose 92 Calcium 9.0 Urine Color Urine Turbidity Urine pH Ur Specific [place] Urine Protein Urine Glucose (UA) Urine Ketones Urine Blood Urine Nitrite Ur Reducing Substances Urine Bilirubin Urine Ictotest Urine Urobilinogen Ur Leukocyte Esterase Urine WBC (Auto) Urine RBC (Auto) U Epithel Cells (Auto) Urine Bacteria (Auto) Urine HCG, Qual Salicylates < 0.3 L Urine Opiates Screen Urine Methadone Screen Acetaminophen Ur Barbiturates Screen Ur Phencyclidine Scrn Ur Amphetamines Screen U Benzodiazepines Scrn Urine Cocaine Screen U Marijuana (THC) Screen Drugs of Abuse Note 01/02/21 01/02/21 01/02/21 15:44 15:48 15:48 WBC RBC Hgb Hct MCV MCH MCHC RDW Plt Count Lymph % (Auto) [place] % (Auto) Eos % (Auto) Baso % (Auto) Lymph # (Auto) [place] # (Auto) Eos # (Auto) Baso # (Auto) Seg Neutrophils % Seg Neutrophils # Sodium Potassium Chloride Carbon Dioxide Anion Gap BUN Creatinine Estimated GFR BUN/Creatinine Ratio Glucose Calcium Urine Color Straw Urine Turbidity Slightly-cloudy Urine pH 7.0 Ur Specific [place] 1.003 Urine Protein <15 mg/dl Urine Glucose (UA) Neg Urine Ketones Neg Urine Blood Neg Urine Nitrite Neg Ur Reducing Substances Not Reportable Urine Bilirubin Neg Urine Ictotest Not Reportable Urine Urobilinogen < 2.0 Ur Leukocyte Esterase Sm Urine WBC (Auto) 1.0 Urine RBC (Auto) 1.0 U Epithel Cells (Auto) 8.0 Urine Bacteria (Auto) 1+ Urine HCG, Qual Negative Salicylates Urine Opiates Screen Negative Urine Methadone Screen Negative Acetaminophen 5.0 L Ur Barbiturates Screen Negative Ur Phencyclidine Scrn Negative Ur Amphetamines Screen Negative U Benzodiazepines Scrn Negative Urine Cocaine Screen Negative U Marijuana (THC) Screen Negative Drugs of Abuse Note Disclamer - Medical Decision Making This is a 30-year-old healthy female with history of bipolar depression who presents with suicidal ideation with plan to jump off a bridge. She is medically clear for psychiatric care. I am mental health microsoft office instructor agree that patient requires inpatient stabilization. Involuntary hold initiated with the completion of 1013 form. Patient is medically clear for psychiatric care. CBC chemistry serum toxicology all within normal limits. Urinalysis urine toxicology unremarkable. Urine test negative. Critical care attestation.: If time is entered above; I have spent that time in minutes in the direct care of this critically ill patient, excluding procedure time. ED Disposition Clinical Impression: Suicidal ideation, History of bipolar disorder, Acute depression Disposition: [id number]/TX-[id number] ANOTHER TYPE HLTHCARE Is pt being admited?: No Does the pt Need Aspirin: No Condition: Stable
--- NOTE | 2021-01-03 10:09 | Consultation ---
History of Present Illness - Reason for Consult Consult date: 01/03/21 Reason for consult: SI - History of Present Psychiatric Illness Per ER Note: "HPI: This is a 30-year-old female with history of bipolar affective disorder who presents with depression and suicidal ideation. She plans to jump off a bridge. She has been followed by psychiatrist at [facility] clinic. She has been out of her psychiatric medications Zyprexa and Prozac for over a month. She has several social stressors. She does not have custody of her child. She is living with her significant other in a hotel room. She formally worked at [employer]. She also formally worked in a [employer] department. However she is now unemployed. She states that her family is "scattered". She has had a previous suicide attempt as an adolescent. She is also been hospitalized for psychiatric care in the past. She currently denies any physical complaints. She does not have history of chronic medical illness." During my interview with 30y/o Selena Tucker, she is lying down. She is awake. She appears withdrawn. The patient expresses feeling suicidal with plans to jump off a bridge. She verbalizes feeling "very depressed." She says she has been off her meds for about a month, and prior to that they were keeping her stable. She says she was diagnosed with bipolar, schizophrenia and was taking zyprexa and prozac. She denies any illicit drug use, alcohol or nicotine use. PAST PSYCHIATRIC HISTORY Diagnoses: Bipolar, schizophrenia Suicide attempts or Self-harm behavior: Yes Prior psychiatric hospitalizations: Yes Substance Abuse history: Patient denies Previous psychiatric medications tried: prozac and zyprexa Outpatient treatment: not currently PAST MEDICAL HISTORY: None reported Family Psychiatric History: None reported SOCIAL HISTORY Marital Status: Single Living Arrangements: [facility] Employment Status: Unemployed Access to guns/weapons: Denies Education: high school History of Abuse: None reported Legal History: None reported REVIEW OF SYSTEMS Constitutional: Negative for weight loss ENT: Negative for stridor Respiratory: Negative for cough or hemoptysis All other systems reviewed and are negative MENTAL STATUS EXAMINATION General Appearance and Behavior: dressed appropriately , age appropriate, wearing appropriate clothes, lying in bed, poor eye contact, cooperative Cooperation: Participating/engaged Psychomotor Behavior: unremarkable and within normal limits Mood: "very depressed" Affect and affective range: Congruent with mood Thought Process: Fluent/Logical Thought Content: Denies Speech: Normal volume, Regular rate and rhythm Intellectual Functioning: Average Suicidal Ideation: Yes with plan to jump off bridge Homicidal Ideation: Denies HI Impulse Control: Unimpaired Insight and Judgment: Limited insight and judgment. Memory: Normal Attention: Normal Orientation: Alert, oriented Assessment and Plan (1) Bipolar Disorder Current Visit: Yes Status: Acute RECOMMENDATIONS 1013 Zyprexa 5mg po daily Prozac 10mg po daily Trazodone 50mg po qhs Risks, benefits and alternatives of medications discussed with the patient, questions answered and consent obtained from patient. PSYCHOTHERAPY: Supportive psychotherapy provided MEDICAL: Per primary team DELIRIUM PRECAUTIONS: Please re-orient patient frequently, keep lights on during the day, and minimize benzodiazepines and opiates as these medications could worsen patient's confusion. HEEL EMERY BUFFER: Per medical team DISPOSITION: Recommend acute inpatient psychiatric hospitalization at this time FOLLOW-UP: Will Follow Thank you for the consult. Please contact with any questions and/or concerns. Case discussed with Dr. Ovalles Medications and Allergies Allergies Allergy/AdvReac Type Severity Reaction Status Date / Time No Known Allergies Allergy Verified 01/10/20 23:27 Home Medications Medication Instructions Recorded Confirmed Last Taken Type methOCARBAMOL [Robaxin TAB] 500 mg PO Q6H PRN #15 tablet 02/28/17 Unknown Rx Permethrin [Elimite] 60 gm TP ONCE #60 cream..g. 12/09/17 Unknown Rx Multivitamin [Multiple Vitamins] 1 each PO QDAY 30 Days #30 tablet 08/08/18 Unknown Rx Chlorhexidine Gluconate [Hibiclens] 236 ml TP BID 5 Days liquid 08/27/18 Unknown Rx Bacillus Coagulans [Probiotic] 1 each PO QDAY 30 Days #30 10/15/18 Unknown Rx capsule. Albuterol Sulfate [Proventil Hfa] 1 - 2 puff IH Q6H PRN #1 hfa.aer.ad 07/30/19 Unknown Rx Benzonatate [Tessalon Perles] 100 mg PO Q8HR #30 capsule 07/30/19 Unknown Rx Fluconazole (Nf) [Diflucan TAB] 150 mg PO ONCE #1 tablet 07/30/19 Unknown Rx Ibuprofen [Motrin 600 MG tab] 600 mg PO Q8H PRN #15 tablet 07/30/19 Unknown Rx cephALEXin [Keflex] 500 mg PO Q8HR #30 cap 07/30/19 Unknown Rx methylPREDNISolone [Medrol 4MG 4 mg PO DAILY #21 tab.ds.pk 07/30/19 Unknown Rx DOSEPAK (21 tabs)] metroNIDAZOLE [Flagyl TAB] 500 mg PO Q12HR 7 Days #14 tab 07/30/19 Unknown Rx Triamcinolone 0.1% [Kenalog 0.1% 1 applic TP BID 7 Days #1 tube 06/05/20 Unknown Rx CREAM] hydrOXYzine HCL [Atarax] 25 mg PO Q6HR PRN #12 tablet 06/05/20 Unknown Rx predniSONE [Deltasone] 20 mg PO QDAY #5 tab 06/05/20 Unknown Rx Mental Status Exam - Vital signs Last Vital Signs Temp 98.3 F 01/03/21 08:18 Pulse 71 01/03/21 08:18 Resp 18 01/03/21 09:10 BP 110/65 01/03/21 08:18 Pulse Ox 100 01/03/21 09:10 Results Result Diagrams: 01/02/21 15:44 01/02/21 15:44 Abnormal lab results 01/02/21 01/02/21 01/02/21 Range/Units 15:44 15:44 15:44 RDW 17.0 H (13.2-15.2) % Mitchell % (Auto) 13.3 H (0.0-7.3) % Sodium 136 L (137-145) mmol/L Salicylates < 0.3 L (2.8-20.0) mg/dL Acetaminophen (10.0-30.0) ug/mL 01/02/21 Range/Units 15:44 RDW (13.2-15.2) % [place] % (Auto) (0.0-7.3) % Sodium (137-145) mmol/L Salicylates (2.8-20.0) mg/dL Acetaminophen 5.0 L (10.0-30.0) ug/mL All other labs normal.
[2021-01-03] MEDS ORDERED: FLUoxetine 10 MG TAB PO SCH (11:00)
[2021-01-03] MEDS ORDERED: IBUPROFEN 800 MG TAB PO PRN (16:41)
[2021-01-03] MEDS: traZODone 50 MG TAB PO SCH (22:06)
--- NOTE | 2021-01-04 08:44 | Progress Note ---
Subjective - Reason for Consult Consult date: 01/04/21 Reason for consult: SI, depression - Chief Complaint Chief complaint: The patient is awake and eating breakfast. She appears withdrawn and down. She verbalizes feeling suicidal and feeling very depressed. She says "I got a lot going on in my life and need some help." She says "I've been off me meds and need to get them in my system good." The patient also asks abut custodial information. The patient says "just really don't feel like living right now." REVIEW OF SYSTEMS Constitutional: Negative for weight loss ENT: Negative for stridor Respiratory: Negative for cough or hemoptysis All other systems reviewed and are negative MENTAL STATUS EXAMINATION General Appearance and Behavior: dressed appropriately , age appropriate, wearing appropriate clothes, lying in bed, poor eye contact, cooperative Cooperation: Participating/engaged Psychomotor Behavior: unremarkable and within normal limits Mood: "very depressed" Affect and affective range: Congruent with mood Thought Process: Fluent/Logical Thought Content: hopelessness, SI Speech: Normal volume, Regular rate and rhythm Intellectual Functioning: Average Suicidal Ideation: Yes with plan to jump off bridge Homicidal Ideation: Denies HI Hallucinations: Denies Delusions: None elicited Impulse Control: Unimpaired Insight and Judgment: Limited insight and judgment. Memory: Normal Attention: Normal Orientation: Alert, oriented Assessment and Plan (1) Bipolar Disorder Current Visit: Yes Status: Acute RECOMMENDATIONS 1013 Increased Zyprexa 7.5mg po daily Increased Prozac 20mg po daily Risks, benefits and alternatives of medications discussed with the patient, questions answered and consent obtained from patient. PSYCHOTHERAPY: Supportive psychotherapy provided MEDICAL: Per primary team DELIRIUM PRECAUTIONS: Please re-orient patient frequently, keep lights on during the day, and minimize benzodiazepines and opiates as these medications could worsen patient's confusion. INSURANCE UNDERWRITER: Per medical team DISPOSITION: Recommend acute inpatient psychiatric hospitalization at this time FOLLOW-UP: Will Follow Thank you for the consult. Please contact with any questions and/or concerns. Case discussed with Dr. Ovalles Mental Status Exam - Vital signs Last Vital Signs Temp 98.8 F 01/03/21 20:43 Pulse 68 01/03/21 20:43 Resp 16 01/03/21 20:43 BP 98/59 01/03/21 20:43 Pulse Ox 97 01/03/21 20:43
[2021-01-04] MEDS: FLUoxetine 20 MG CAP PO SCH (11:23)
[2021-01-04] MEDS: traZODone 50 MG TAB PO SCH (21:43)
--- NOTE | 2021-01-05 08:33 | Progress Note ---
Subjective - Reason for Consult Consult date: 01/05/21 Reason for consult: SI - Chief Complaint Chief complaint: The patient is sitting in bed awake. She is calm, cooperative and polite. She is asking for resources for a senior living. The patient states she no longer feels suicidal. She also denies ever feeling homicidal. She says she feels a little down, but "optimistic and know what I need to do." She says she does have a job and will use her income to do better for herself. She denies hallucinations of any kind. She had me to call her friend to see if she could live with him. I call him from bedside. He says the patient could not live with him because they did not get along. She also had me to call her mother who was also called twice from the bedside. She did not answer to I left a message. REVIEW OF SYSTEMS Constitutional: Negative for weight loss ENT: Negative for stridor Respiratory: Negative for cough or hemoptysis All other systems reviewed and are negative MENTAL STATUS EXAMINATION General Appearance and Behavior: dressed appropriately , age appropriate, wearing appropriate clothes, lying in bed, poor eye contact, cooperative Cooperation: Participating/engaged Psychomotor Behavior: unremarkable and within normal limits Mood: "better, but still a little down" Affect and affective range: Congruent with mood Thought Process: Fluent/Logical Thought Content: optimism Speech: Normal volume, Regular rate and rhythm Intellectual Functioning: Average Suicidal Ideation: Denies Homicidal Ideation: Denies HI Hallucinations: Denies Delusions: None elicited Impulse Control: Unimpaired Insight and Judgment: Limited insight and judgment. Memory: Normal Attention: Normal Orientation: Alert, oriented Assessment and Plan (1) Bipolar Disorder Current Visit: Yes Status: Acute RECOMMENDATIONS d/c 1013 Zyprexa 7.5mg po daily Prozac 20mg po daily Trazodone 50mg po qhs The patient says he has not has his invega sustenna and states it is due. to get Invega Sustenna injection prior to discharge. Risks, benefits and alternatives of medications discussed with the patient, ques tions answered and consent obtained from patient. PSYCHOTHERAPY: Supportive psychotherapy provided MEDICAL: Per primary team DELIRIUM PRECAUTIONS: Please re-orient patient frequently, keep lights on during the day, and minimize benzodiazepines and opiates as these medications could worsen patient's confusion. RELAY TESTER: Per medical team DISPOSITION: Do not Recommends acute inpatient psychiatric hospitalization at this time. The patient understands that if suicidal thoughts are to arise she is to seek immediate assistance including but not limited to 911/ER, or crisis hotline The waistband setter to give safety plan, and outpatient resources for psych services, CBT, medication assistance and resources for shelters. The patient will need a transportation plan as well. The patient is to follow up in 7 to 14 days upon discharge Will sign off. Thank you for the consult. Please contact with any questions and/or concerns. Case discussed with Dr. Ovalles Mental Status Exam - Vital signs Last Vital Signs Temp 98.5 F 01/05/21 08:06 Pulse 85 01/05/21 08:06 Resp 19 01/05/21 08:06 BP 90/42 01/05/21 08:06 Pulse Ox 100 01/05/21 08:06
[2021-01-05] MEDS: FLUoxetine 20 MG CAP PO SCH (10:09)
--- NOTE | 2021-01-05 10:31 | Event Note ---
Date: 01/05/21 The patient was medically cleared on her initial evaluation a few days ago. She was found to be Covid positive and asymptomatic. She was placed on a 1013, and followed by the psychiatry team. The psychiatry team have recommended discontinuation of 1013, and outpatient follow-up. However, the patient is homeless, and does not appear to have a safe place to go. It is also currently very cold outside with freeze warnings. It is therefore not safe to discharge the patient unless we can verify that she indeed has a safe place to go. Case management consultation has been requested to verify where patient may be discharged, knowing that she is Covid positive. Based off of history, physical, laboratory studies and vital signs, patient does not require medical admission for COVID-19 at this time. Vital Signs 01/02/21 01/02/21 01/02/21 15:11 16:07 20:00 Temperature 98.6 F 98.7 F Pulse Rate 83 78 Respiratory 20 16 16 Rate Blood Pressure 92/64 Blood Pressure 105/68 [Right] O2 Sat by Pulse 100 99 Oximetry 01/03/21 01/03/21 01/03/21 02:30 08:18 09:10 Temperature 98.4 F 98.3 F Pulse Rate 67 71 Respiratory 16 18 18 Rate Blood Pressure Blood Pressure 94/58 110/65 [Right] O2 Sat by Pulse 99 100 100 Oximetry 01/03/21 01/04/21 01/04/21 20:43 08:55 09:24 Temperature 98.8 F 98.6 F 98.2 F Pulse Rate 68 76 86 Respiratory 16 20 18 Rate Blood Pressure 105/55 Blood Pressure 98/59 108/70 [Right] O2 Sat by Pulse 97 100 96 Oximetry 01/04/21 01/04/21 01/05/21 17:19 22:57 05:12 Temperature 99.1 F 99 F 99 F Pulse Rate 83 86 88 Respiratory 20 16 16 Rate Blood Pressure 90/52 Blood Pressure 98/52 100/60 110/60 [Right] O2 Sat by Pulse 98 97 97 Oximetry 01/05/21 08:06 Temperature 98.5 F Pulse Rate 85 Respiratory 19 Rate Blood Pressure Blood Pressure 90/42 [Right] O2 Sat by Pulse 100 Oximetry Lab Results 01/02/21 01/02/21 01/02/21 Range/Units 15:44 15:44 15:44 WBC 6.0 (4.5-11.0) K/mm3 RBC 4.19 (3.65-5.03) M/mm3 Hgb 13.0 (10.1-14.3) gm/dl Hct 39.2 (30.3-42.9) % MCV 94 (79-97) fl MCH 31 (28-32) pg MCHC 33 (30-34) % RDW 17.0 H (13.2-15.2) % Plt Count 259 (140-440) K/mm3 Lymph % (Auto) 26.3 (13.4-35.0) % [place] % (Auto) 13.3 H (0.0-7.3) % Eos % (Auto) 0.5 (0.0-4.3) % Baso % (Auto) 0.6 (0.0-1.8) % Lymph # (Auto) 1.6 (1.2-5.4) K/mm3 [place] # (Auto) 0.8 (0.0-0.8) K/mm3 Eos # (Auto) 0.0 (0.0-0.4) K/mm3 Baso # (Auto) 0.0 (0.0-0.1) K/mm3 Seg Neutrophils % 59.3 (40.0-70.0) % Seg Neutrophils # 3.6 (1.8-7.7) K/mm3 Sodium 136 L (137-145) mmol/L Potassium 3.7 (3.6-5.0) mmol/L Chloride 102.1 (98-107) mmol/L Carbon Dioxide 29 (22-30) mmol/L Anion Gap 9 mmol/L BUN 10 (7-17) mg/dL Creatinine 0.8 (0.6-1.2) mg/dL Estimated GFR > 60 ml/min BUN/Creatinine Ratio 13 % Glucose 92 (65-100) mg/dL Calcium 9.0 (8.4-10.2) mg/dL Urine Color (Yellow) Urine Turbidity (Clear) Urine pH (5.0-7.0) Ur Specific Jones (1.003-1.030) Urine Protein (Negative) mg/dL Urine Glucose (UA) (Negative) mg/dL Urine Ketones (Negative) mg/dL Urine Blood (Negative) Urine Nitrite (Negative) Ur Reducing Substances Urine Bilirubin (Negative) Urine Ictotest Urine Urobilinogen (<2.0) mg/dL Ur Leukocyte Esterase (Negative) Urine WBC (Auto) (0.0-6.0) /HPF Urine RBC (Auto) (0.0-6.0) /HPF U Epithel Cells (Auto) (0-13.0) /HPF Urine Bacteria (Auto) (Negative) /HPF Urine HCG, Qual (Negative) Salicylates < 0.3 L (2.8-20.0) mg/dL Urine Opiates Screen Urine Methadone Screen Acetaminophen (10.0-30.0) ug/mL Ur Barbiturates Screen Ur Phencyclidine Scrn Ur Amphetamines Screen U Benzodiazepines Scrn Urine Cocaine Screen U Marijuana (THC) Screen Drugs of Abuse Note Plasma/Serum Alcohol (0-0.07) % Coronavirus (PCR) (Negative) 01/02/21 01/02/21 01/02/21 Range/Units 15:44 15:48 15:48 WBC (4.5-11.0) K/mm3 RBC (3.65-5.03) M/mm3 Hgb (10.1-14.3) gm/dl Hct (30.3-42.9) % MCV (79-97) fl MCH (28-32) pg MCHC (30-34) % RDW (13.2-15.2) % Plt Count (140-440) K/mm3 Lymph % (Auto) (13.4-35.0) % [place] % (Auto) (0.0-7.3) % Eos % (Auto) (0.0-4.3) % Baso % (Auto) (0.0-1.8) % Lymph # (Auto) (1.2-5.4) K/mm3 [place] # (Auto) (0.0-0.8) K/mm3 Eos # (Auto) (0.0-0.4) K/mm3 Baso # (Auto) (0.0-0.1) K/mm3 Seg Neutrophils % (40.0-70.0) % Seg Neutrophils # (1.8-7.7) K/mm3 Sodium (137-145) mmol/L Potassium (3.6-5.0) mmol/L Chloride (98-107) mmol/L Carbon Dioxide (22-30) mmol/L Anion Gap mmol/L BUN (7-17) mg/dL Creatinine (0.6-1.2) mg/dL Estimated GFR ml/min BUN/Creatinine Ratio % Glucose (65-100) mg/dL Calcium (8.4-10.2) mg/dL Urine Color Straw (Yellow) Urine Turbidity Slightly-cloudy (Clear) Urine pH 7.0 (5.0-7.0) Ur Specific Jones 1.003 (1.003-1.030) Urine Protein <15 mg/dl (Negative) mg/dL Urine Glucose (UA) Neg (Negative) mg/dL Urine Ketones Neg (Negative) mg/dL Urine Blood Neg (Negative) Urine Nitrite Neg (Negative) Ur Reducing Substances Not Reportable Urine Bilirubin Neg (Negative) Urine Ictotest Not Reportable Urine Urobilinogen < 2.0 (<2.0) mg/dL Ur Leukocyte Esterase Sm (Negative) Urine WBC (Auto) 1.0 (0.0-6.0) /HPF Urine RBC (Auto) 1.0 (0.0-6.0) /HPF U Epithel Cells (Auto) 8.0 (0-13.0) /HPF Urine Bacteria (Auto) 1+ (Negative) /HPF Urine HCG, Qual Negative (Negative) Salicylates (2.8-20.0) mg/dL Urine Opiates Screen Negative Urine Methadone Screen Negative Acetaminophen 5.0 L (10.0-30.0) ug/mL Ur Barbiturates Screen Negative Ur Phencyclidine Scrn Negative Ur Amphetamines Screen Negative U Benzodiazepines Scrn Negative Urine Cocaine Screen Negative U Marijuana (THC) Screen Negative Drugs of Abuse Note Disclamer Plasma/Serum Alcohol (0-0.07) % Coronavirus (PCR) (Negative) 01/02/21 01/03/21 Range/Units 16:55 09:48 WBC (4.5-11.0) K/mm3 RBC (3.65-5.03) M/mm3 Hgb (10.1-14.3) gm/dl Hct (30.3-42.9) % MCV (79-97) fl MCH (28-32) pg MCHC (30-34) % RDW (13.2-15.2) % Plt Count (140-440) K/mm3 Lymph % (Auto) (13.4-35.0) % [place] % (Auto) (0.0-7.3) % Eos % (Auto) (0.0-4.3) % Baso % (Auto) (0.0-1.8) % Lymph # (Auto) (1.2-5.4) K/mm3 [place] # (Auto) (0.0-0.8) K/mm3 Eos # (Auto) (0.0-0.4) K/mm3 Baso # (Auto) (0.0-0.1) K/mm3 Seg Neutrophils % (40.0-70.0) % Seg Neutrophils # (1.8-7.7) K/mm3 Sodium (137-145) mmol/L Potassium (3.6-5.0) mmol/L Chloride (98-107) mmol/L Carbon Dioxide (22-30) mmol/L Anion Gap mmol/L BUN (7-17) mg/dL Creatinine (0.6-1.2) mg/dL Estimated GFR ml/min BUN/Creatinine Ratio % Glucose (65-100) mg/dL Calcium (8.4-10.2) mg/dL Urine Color (Yellow) Urine Turbidity (Clear) Urine pH (5.0-7.0) Ur Specific Jones (1.003-1.030) Urine Protein (Negative) mg/dL Urine Glucose (UA) (Negative) mg/dL Urine Ketones (Negative) mg/dL Urine Blood (Negative) Urine Nitrite (Negative) Ur Reducing Substances Urine Bilirubin (Negative) Urine Ictotest Urine Urobilinogen (<2.0) mg/dL Ur Leukocyte Esterase (Negative) Urine WBC (Auto) (0.0-6.0) /HPF Urine RBC (Auto) (0.0-6.0) /HPF U Epithel Cells (Auto) (0-13.0) /HPF Urine Bacteria (Auto) (Negative) /HPF Urine HCG, Qual (Negative) Salicylates (2.8-20.0) mg/dL Urine Opiates Screen Urine Methadone Screen Acetaminophen (10.0-30.0) ug/mL Ur Barbiturates Screen Ur Phencyclidine Scrn Ur Amphetamines Screen U Benzodiazepines Scrn Urine Cocaine Screen U Marijuana (THC) Screen Drugs of Abuse Note Plasma/Serum Alcohol < 0.01 (0-0.07) % Coronavirus (PCR) Positive A (Negative)
[2021-01-05] MEDS: traZODone 50 MG TAB PO SCH (22:30)
[2021-01-06 06:55] VITALS: BP 110/68
== END 2021-01-06 09:30 | disposition other institution (70) ==
LOC: ED 15:08
DX: F31.9 Bipolar disorder, unspecified (principal); F17.200 Nicotine dependence, unspecified, uncomplicated; Z98.51 Tubal ligation status; Z79.899 Other long term (current) drug therapy; Z20.822 Contact with and (suspected) exposure to COVID-19
CPT/HCPCS: 36415; 80048; 80307; 81001; 81025; 85025; 99285; U0003; 80320; G0480

== ENCOUNTER 2021-04-21 00:59 | Emergency (ER) | payer OTHER, SELFPAY ==
[2021-04-21 01:09] VITALS: BP 115/70
[2021-04-21 01:42] LABS: Hematocrit 35.6 % (30.3-42.9); Hemoglobin 11.5 gm/dl (10.1-14.3); Mean Corpuscular HGB Conc 32 % (30-34); Mean Corpuscular Volume 87 fl (79-97); Platelet Count 374 K/mm3 (140-440); Red Blood Count 4.08 M/mm3 (3.65-5.03); Red Cell Distribution Width 17.8 % (13.2-15.2)
[2021-04-21 01:52] LABS: Bilirubin,Urine NEG (Negative); Blood,Urine MOD (Negative); Color,Urine Straw (Yellow); Protein,Urine <15 mg/dL mg/dL (Negative); RBC,Urine < 1.0 /HPF (0.0-6.0); Urobilinogen,Urine < 2.0 mg/dL (<2.0); WBC,Urine < 1.0 /HPF (0.0-6.0)
[2021-04-21 02:53] LABS: Benzodiazepines Screen,Urine Negative; Cannabinoid Screen,Urine Negative; Methadone Screen,Urine Negative; Opiate Screen,Urine Negative
[2021-04-21 02:55] LABS: BUN/Creatinine Ratio 6; Blood Urea Nitrogen 5 mg/dL (7-17); Calcium 8.9 mg/dL (8.4-10.2); Hemolysis Index 8
[2021-04-21 03:12] LABS: Amphetamine Screen,Urine Positive; Cocaine Screen,Urine Positive
[2021-04-21 03:39] LABS: Total Cells Counted 100
[2021-04-21 03:40] LABS: RBC Morphology Normal
[2021-04-21] MEDS ORDERED: POTASSIUM CHLORIDE ER 20 MEQ TAB PO ONE (08:19)
--- NOTE | 2021-04-21 08:20 | Emergency Department Report ---
HPI - General Chief Complaint: Abdominal Pain Time Seen by Provider: 04/21/21 08:07 - HPI HPI: Room 3 The patient is a 30-year-old female present with chief complaint of depression and suicidal ideation. The patient states she has felt depressed and suicidal for "a couple of days." Patient denies any attempts at harming herself but states that her plan was to run into traffic. Patient also states she has had vaginal pressure for the past 2 to 3 days and believes there is "something" stuck inside her vagina. Patient denies placing anything in her vagina. ED Past Medical Hx - Past Medical History Previous Medical History?: Yes Hx Hypertension: Yes Hx Psychiatric Treatment: Yes (depression, bipolar, insomnia, schizophrenia) - Surgical History Past Surgical History?: Yes Additional Surgical History: tubal ligation - Family History Family history: no significant - Social History Smoking Status: Current Every Day Smoker (1/2 pack/day) Substance Use Type: None (Denies illicit drug use (UDS positive for cocaine and amphetamines)), Alcohol - Medications Home Medications: Home Medications Medication Instructions Recorded Confirmed Last Taken Type Multivitamin [Multiple Vitamins] 1 each PO QDAY 30 Days #30 tablet 08/08/18 01/03/21 Unknown Rx Albuterol Sulfate [Proventil Hfa] 1 - 2 puff IH Q6H PRN #1 [id number] 07/30/19 01/03/21 Unknown Rx Ibuprofen [Motrin 600 MG tab] 600 mg PO Q8H PRN #15 tablet 07/30/19 01/03/21 Unknown Rx FLUoxetine [PROzac] 20 mg PO QDAY #30 capsule 01/05/21 Unknown Rx OLANzapine [ZyPREXA] 7.5 mg PO DAILY #30 tablet 01/05/21 Unknown Rx traZODone [Desyrel] 50 mg PO QHS #30 tab 01/05/21 Unknown Rx metroNIDAZOLE [Flagyl] 500 mg PO Q12HR #14 tab 04/21/21 Unknown Rx ED Review of Systems ROS: Stated complaint: MH EVALUATION Other details as noted in HPI Constitutional: no symptoms reported Eyes: denies: eye pain ENT: denies: throat pain Respiratory: no symptoms reported Cardiovascular: denies: chest pain Endocrine: no symptoms reported Gastrointestinal: denies: abdominal pain Genitourinary: other (Vaginal foreign body sensation). denies: dysuria Musculoskeletal: denies: back pain Neurological: denies: headache Psychiatric: suicidal thoughts Physical Exam - Physical Exam Vital Signs: Vital Signs 04/21/21 01:04 Temperature 98.7 F Pulse Rate 108 H Respiratory 18 Rate Blood Pressure 115/70 O2 Sat by Pulse 98 Oximetry Physical Exam: GENERAL: The patient is well-developed well-nourished female lying on stretcher not appearing to be in acute distress. [] HEENT: Normocephalic. Atraumatic. Extraocular motions are intact. Patient has moist mucous membranes. NECK: Supple. Trachea midline CHEST/LUNGS: Clear to auscultation. There is no respiratory distress noted. HEART/CARDIOVASCULAR: Regular. There is no tachycardia. There is no gallop rub or murmur. ABDOMEN: Abdomen is soft, nontender. Patient has normal bowel sounds. There is no abdominal distention. SKIN: There is no rash. There is no edema. There is no diaphoresis. NEURO: The patient is awake, alert, and oriented. The patient is cooperative. The patient has no focal neurologic deficits. The patient has normal speech MUSCULOSKELETAL: There is no evidence of acute injury. PELVIC: No foreign body seen during speculum exam. Small amount of dark blood present in the vault patient states she is on her normal menses. ED Course Vital Signs 04/21/21 01:04 Temperature 98.7 F Pulse Rate 108 H Respiratory 18 Rate Blood Pressure 115/70 O2 Sat by Pulse 98 Oximetry ED Medical Decision Making - Lab Data Result diagrams: 04/21/21 01:17 04/21/21 01:17 Laboratory Tests 04/21/21 04/21/21 04/21/21 01:17 01:17 01:17 WBC RBC Hgb Hct MCV MCH MCHC RDW Plt Count Bee % (Auto) Add Manual Diff Total Counted Seg Neuts % (Manual) Lymphocytes % (Manual) Monocytes % (Manual) Eosinophils % (Manual) Nucleated RBC % Seg Neutrophils # Man Band Neutrophils # Lymphocytes # (Manual) Abs React Lymphs (Man) Monocytes # (Manual) Eosinophils # (Manual) Basophils # (Manual) Metamyelocytes # Myelocytes # Promyelocytes # Blast Cells # WBC Morphology Hypersegmented Neuts Hyposegmented Neuts Hypogranular Neuts Smudge Cells Toxic Granulation Toxic Vacuolation Dohle Bodies Pelger-Huet Anomaly Svetlana Rods Platelet Estimate Clumped Platelets Plt Clumps, EDTA Large Platelets Giant Platelets Platelet Satelliting Plt Morphology Comment RBC Morphology Dimorphic RBCs Polychromasia Hypochromasia Poikilocytosis Anisocytosis Microcytosis Macrocytosis Spherocytes Pappenheimer Bodies Sickle Cells Target Cells Tear Drop Cells Ovalocytes Helmet Cells Yadav-Kohatk Bodies Hondo Rings Bluebell Cells Bite Cells Crenated Cell Elliptocytes Acanthocytes (Spur) Rouleaux Hemoglobin C Crystals Schistocytes Malaria parasites Manuel Bodies Hem Pathologist Commnt Sodium 138 Potassium 3.3 L Chloride 102.2 Carbon Dioxide 23 Anion Gap 16 BUN 5 L Creatinine 0.8 Estimated GFR > 60 BUN/Creatinine Ratio 6 Glucose 74 Calcium 8.9 HCG, Qual Urine Color Urine Turbidity Urine pH Ur Specific [place] Urine Protein Urine Glucose (UA) Urine Ketones Urine Blood Urine Nitrite Urine Bilirubin Urine Urobilinogen Ur Leukocyte Esterase Urine WBC (Auto) Urine RBC (Auto) U Epithel Cells (Auto) Salicylates < 0.3 L Urine Opiates Screen Urine Methadone Screen Acetaminophen 5.0 L Ur Barbiturates Screen Ur Phencyclidine Scrn Ur Amphetamines Screen U Benzodiazepines Scrn Urine Cocaine Screen U Marijuana (THC) Screen Drugs of Abuse Note Plasma/Serum Alcohol 04/21/21 04/21/21 04/21/21 01:17 01:17 01:24 WBC 7.3 RBC 4.08 Hgb 11.5 Hct 35.6 MCV 87 MCH 28 MCHC 32 RDW 17.8 H Plt Count 374 Bee % (Auto) Drywall Hanger Add Manual Diff Complete Total Counted 100 Seg Neuts % (Manual) 48.0 Lymphocytes % (Manual) 35.0 Monocytes % (Manual) 16.0 H Eosinophils % (Manual) 1.0 Nucleated RBC % Not Reportable Seg Neutrophils # Man 3.5 Band Neutrophils # 0.0 Lymphocytes # (Manual) 2.6 Abs React Lymphs (Man) 0.0 Monocytes # (Manual) 1.2 H Eosinophils # (Manual) 0.1 Basophils # (Manual) 0.0 Metamyelocytes # 0.0 Myelocytes # 0.0 Promyelocytes # 0.0 Blast Cells # 0.0 WBC Morphology Not Reportable Hypersegmented Neuts Not Reportable Hyposegmented Neuts Not Reportable Hypogranular Neuts Not Reportable Smudge Cells Not Reportable Toxic Granulation Not Reportable Toxic Vacuolation Not Reportable Dohle Bodies Not Reportable Pelger-Huet Anomaly Not Reportable Svetlana Rods Not Reportable Platelet Estimate Not Reportable Clumped Platelets Not Reportable Plt Clumps, EDTA Not Reportable Large Platelets Not Reportable Giant Platelets Not Reportable Platelet Satelliting Not Reportable Plt Morphology Comment Not Reportable RBC Morphology Normal Dimorphic RBCs Not Reportable Polychromasia Not Reportable Hypochromasia Not Reportable Poikilocytosis Not Reportable Anisocytosis Not Reportable Microcytosis Not Reportable Macrocytosis Not Reportable Spherocytes Not Reportable Pappenheimer Bodies Not Reportable Sickle Cells Not Reportable Target Cells Not Reportable Tear Drop Cells Not Reportable Ovalocytes Not Reportable Helmet Cells Not Reportable Yadav-Kohatk Bodies Not Reportable Hondo Rings Not Reportable Bluebell Cells Not Reportable Bite Cells Not Reportable Crenated Cell Not Reportable Elliptocytes Not Reportable Acanthocytes (Spur) Not Reportable Rouleaux Not Reportable Hemoglobin C Crystals Not Reportable Schistocytes Not Reportable Malaria parasites Not Reportable Manuel Bodies Not Reportable Hem Pathologist Commnt No Sodium Potassium Chloride Carbon Dioxide Anion Gap BUN Creatinine Estimated GFR BUN/Creatinine Ratio Glucose Calcium HCG, Qual Negative Urine Color Urine Turbidity Urine pH Ur Specific [place] Urine Protein Urine Glucose (UA) Urine Ketones Urine Blood Urine Nitrite Urine Bilirubin Urine Urobilinogen Ur Leukocyte Esterase Urine WBC (Auto) Urine RBC (Auto) U Epithel Cells (Auto) Salicylates Urine Opiates Screen Urine Methadone Screen Acetaminophen Ur Barbiturates Screen Ur Phencyclidine Scrn Ur Amphetamines Screen U Benzodiazepines Scrn Urine Cocaine Screen U Marijuana (THC) Screen Drugs of Abuse Note Plasma/Serum Alcohol 0.14 H 04/21/21 04/21/21 01:29 01:29 WBC RBC Hgb Hct MCV MCH MCHC RDW Plt Count Bee % (Auto) Add Manual Diff Total Counted Seg Neuts % (Manual) Lymphocytes % (Manual) Monocytes % (Manual) Eosinophils % (Manual) Nucleated RBC % Seg Neutrophils # Man Band Neutrophils # Lymphocytes # (Manual) Abs React Lymphs (Man) Monocytes # (Manual) Eosinophils # (Manual) Basophils # (Manual) Metamyelocytes # Myelocytes # Promyelocytes # Blast Cells # WBC Morphology Hypersegmented Neuts Hyposegmented Neuts Hypogranular Neuts Smudge Cells Toxic Granulation Toxic Vacuolation Dohle Bodies Pelger-Huet Anomaly Svetlana Rods Platelet Estimate Clumped Platelets Plt Clumps, EDTA Large Platelets Giant Platelets Platelet Satelliting Plt Morphology Comment RBC Morphology Dimorphic RBCs Polychromasia Hypochromasia Poikilocytosis Anisocytosis Microcytosis Macrocytosis Spherocytes Pappenheimer Bodies Sickle Cells Target Cells Tear Drop Cells Ovalocytes Helmet Cells Yadav-Kohatk Bodies [place] Rings Genet Cells Bite Cells Crenated Cell Elliptocytes Acanthocytes (Spur) Rouleaux Hemoglobin C Crystals Schistocytes Malaria parasites Manuel Bodies Hem Pathologist Commnt Sodium Potassium Chloride Carbon Dioxide Anion Gap BUN Creatinine Estimated GFR BUN/Creatinine Ratio Glucose Calcium HCG, Qual Urine Color Straw Urine Turbidity Clear Urine pH 6.0 Ur Specific [place] 1.001 L Urine Protein <15 mg/dl Urine Glucose (UA) Neg Urine Ketones Neg Urine Blood Mod Urine Nitrite Neg Urine Bilirubin Neg Urine Urobilinogen < 2.0 Ur Leukocyte Esterase Neg Urine WBC (Auto) < 1.0 Urine RBC (Auto) < 1.0 U Epithel Cells (Auto) 1.0 Salicylates Urine Opiates Screen Negative Urine Methadone Screen Negative Acetaminophen Ur Barbiturates Screen Negative Ur Phencyclidine Scrn Negative Ur Amphetamines Screen Positive U Benzodiazepines Scrn Negative Urine Cocaine Screen Positive U Marijuana (THC) Screen Negative Drugs of Abuse Note Disclamer Plasma/Serum Alcohol Wet prep-greater than 20% clue cells, no trichomonas, no yeast - Differential Diagnosis Schizophrenia, suicidal ideation, vaginal foreign body, UTI, BV Critical care attestation.: If time is entered above; I have spent that time in minutes in the direct care of this critically ill patient, excluding procedure time. ED Disposition Clinical Impression: Suicidal ideation, Bacterial vaginosis Disposition: DC-01 TO HOME OR SELFCARE Is pt being admited?: No Does the pt Need Aspirin: No Condition: Stable Instructions: Bacterial Vaginosis, [id number], Bacterial Vaginosis (ED), Abdominal Pain (ED) Additional Instructions: Professional and Agency Contacts To help [facility](12/06) [place] Crisis Line: Suicide Prevention Line: Crisis Text Line: Text START to 205136 Emergency: 911 Outpatient COMMUNITY Behavioral Health Resources: NANCY: [facility] [address] [place], [place] [address] MILLA: [facility] [address] [place] [address] ARIS: [facility] - [address] [place] [address] Monday thru Monday - 8am - 5pm [place]: [facility] Address: [address], [place] [address] [place]: [facility] Address: [address] [place] [address] Monday thru Monday- 7am-2pm [facility] Address: [address] [place] [address] Monday thru Monday: 8:30AM-5PM OUTPATIENT MENTAL HEALTH RESOURCES [facility], [address] [place], [place] [id number] [facility] Brittni Lucero MD: [address] [facility] [address] [place], [place] [id number] [facility]: [address] [place], [place] [id number] [facility] [place], [place] [id number] [phone] [facility]: [address] [facility] [address] [place] [address] [facility]: [address] [facility] Patel. B [facility] [id number] [facility]: [address] [place] [address] Babak Mcdonald MD: [address] [facility] [id number] [facility]: [address] [place], [place] [id number] [phone] [place] CRISIS AND ACCESS LINE: * HOMELESS RESOURCES: [facility] NEED HELP? If you are in need of help or know someone who does, please contact us at [email or web address] or call , or come to our offices at [address] [place] [address], Monday-Monday beginning at 8AM. [facility] Males only Admission at 7am Mon to Fri Address: [address] [place] [id number] [facility] Engagement Center [phone] Regular program admission occurs Monday through Monday at 7:00 am and operates o n a first come, first serve basis. Because we cant anticipate program availability in advance and program spots are in high demand, we recommend arriving early. Space fills up fast! Next steps can include: Assignment to a [facility] program bed Connection to and placement in a partner program, or Referral to a partner agency [place] [facility]: [facility] Address: [address] [place] [address] How do I join the [facility] housing program? Our housing programs are offered based on availability. If you are looking to participate in our housing program, simply call [phone] to find out if we have available space. Since we do receive many calls, please allow up to 48 hours for one of our housing specialists to return your call. If we do not have vacancies, we suggest calling the [facility] hotline at 211 for additional housing options. [facility] only Admission at 4:30pm daily Address: [place] [address] [facility] Admission from 8am to 10am Daily No intake until 11/16/20 Address: [place] [address] [facility] WOMEN and FAMILY Admission Address: [place] [address] Prescriptions: metroNIDAZOLE [Flagyl] 500 mg PO Q12HR #14 tab Referrals: PRIMARY CARE, [Primary Care Provider] - 3-5 Days [facility] [Outside] - 3-5 Days Forms: STI Treatment and Prevention Time of Disposition: 12:44
--- NOTE | 2021-04-21 11:04 | Consultation ---
History of Present Illness - Reason for Consult Consult date: 04/21/21 Reason for consult: MHE Requesting physician: EMIL DOWNS - History of Present Psychiatric Illness Per ED Provider: The patient is a 30-year-old female present with chief complaint of depression and suicidal ideation. The patient states she has felt depressed and suicidal for "a couple of days." Patient denies any attempts at harming herself but states that her plan was to run into traffic. Patient also states she has had vaginal pressure for the past 2 to 3 days and believes there is "something" stuck inside her vagina. Patient denies placing anything in her vagina. Psych HPI Patient is a 30 year old single, unemployed Female with past psychiatric history of Bipolar and schizophrenia who presented to the ED with complaints of depression and suicidal ideation. Per patient, she says she does not feel that way right now, says she does need a place to stay. She endorses being depressed after she had a misunderstanding with her current partner, she says they hve not broken up but the situation did warrant them spending some days apart. PAST PSYCHIATRIC HISTORY Diagnoses: Bipolar, schizophrenia Suicide attempts or Self-harm behavior: Yes Prior psychiatric hospitalizations: Yes Substance Abuse history: Patient denies Previous psychiatric medications tried: prozac and zyprexa Outpatient treatment: not currently PAST MEDICAL HISTORY: None reported Family Psychiatric History: None reported SOCIAL HISTORY Marital Status: Single Living Arrangements: banner Employment Status: Unemployed Access to guns/weapons: Denies Education: high school History of Abuse: None reported Legal History: None reported REVIEW OF SYSTEMS Constitutional: Negative for weight loss ENT: Negative for stridor Respiratory: Negative for cough or hemoptysis All other systems reviewed and are negative MENTAL STATUS EXAMINATION General Appearance and Behavior: dressed appropriately , age appropriate, wearing appropriate clothes, lying in bed, poor eye contact, cooperative Cooperation: Participating/engaged Psychomotor Behavior: unremarkable and within normal limits Mood: "very depressed" Affect and affective range: Congruent with mood Thought Process: Fluent/Logical Thought Content: Denies Speech: Normal volume, Regular rate and rhythm Intellectual Functioning: Average Suicidal Ideation: dnies Homicidal Ideation: Denies HI Impulse Control: Unimpaired Insight and Judgment: Limited insight and judgment. Memory: Normal Attention: Normal Orientation: Alert, oriented Assessment and Plan (1) Bipolar Disorder Current Visit: Yes Status: Acute Treatment Plan MEDICATIONS: Risks, benefits and alternatives of medications discussed with the patient, questions answered and consent obtained from patient. PSYCHOTHERAPY: Supportive psychotherapy provided MEDICAL: Per primary team DELIRIUM PRECAUTIONS: Please re-orient patient frequently, keep lights on during the day, and minimize benzodiazepines and opiates as these medications could worsen patient's confusion. IMPLEMENTATION COORDINATOR: DISPOSITION: Do Not Recommend acute inpatient psychiatric hospitalization at this time. Case discussed with Dr. Ovalles who agrees with current disposition LEGAL STATUS: 1013 rescinded FOLLOW-UP: Will sign off Thank you for the consult. Please contact with any questions and/or concerns. Medications and Allergies Allergies Allergy/AdvReac Type Severity Reaction Status Date / Time No Known Allergies Allergy Verified 01/10/20 23:27 Home Medications Medication Instructions Recorded Confirmed Last Taken Type Multivitamin [Multiple Vitamins] 1 each PO QDAY 30 Days #30 tablet 08/08/18 01/03/21 Unknown Rx Albuterol Sulfate [Proventil Hfa] 1 - 2 puff IH Q6H PRN #1 hfa.aer.ad 07/30/19 01/03/21 Unknown Rx Ibuprofen [Motrin 600 MG tab] 600 mg PO Q8H PRN #15 tablet 07/30/19 01/03/21 Unknown Rx FLUoxetine [PROzac] 20 mg PO QDAY #30 capsule 01/05/21 Unknown Rx OLANzapine [ZyPREXA] 7.5 mg PO DAILY #30 tablet 01/05/21 Unknown Rx traZODone [Desyrel] 50 mg PO QHS #30 tab 01/05/21 Unknown Rx Mental Status Exam - Vital signs Last Vital Signs Temp 98.7 F 04/21/21 01:04 Pulse 108 H 04/21/21 01:04 Resp 18 04/21/21 01:04 BP 115/70 04/21/21 01:04 Pulse Ox 98 04/21/21 01:04 Results Result Diagrams: 04/21/21 01:17 04/21/21 01:17 Abnormal lab results 04/21/21 04/21/21 04/21/21 Range/Units 01:17 01:17 01:17 RDW (13.2-15.2) % Monocytes % (Manual) (0.0-7.3) % Monocytes # (Manual) (0.0-0.8) K/mm3 Potassium 3.3 L (3.6-5.0) mmol/L BUN 5 L (7-17) mg/dL Ur Specific Pound (1.003-1.030) Salicylates < 0.3 L (2.8-20.0) mg/dL Acetaminophen 5.0 L (10.0-30.0) ug/mL Plasma/Serum Alcohol (0-0.07) % 04/21/21 04/21/21 04/21/21 Range/Units 01:17 01:17 01:29 RDW 17.8 H (13.2-15.2) % Monocytes % (Manual) 16.0 H (0.0-7.3) % Monocytes # (Manual) 1.2 H (0.0-0.8) K/mm3 Potassium (3.6-5.0) mmol/L BUN (7-17) mg/dL Ur Specific Pound 1.001 L (1.003-1.030) Salicylates (2.8-20.0) mg/dL Acetaminophen (10.0-30.0) ug/mL Plasma/Serum Alcohol 0.14 H (0-0.07) % All other labs normal.
[2021-04-21] MEDS ORDERED: metroNIDAZOLE 500 MG TAB PO SCH (12:00)
== END 2021-04-21 13:23 | disposition home or self-care (01) ==
LOC: ED 00:59
DX: R45.851 Suicidal ideations (principal); N76.0 Acute vaginitis; Z20.822 Contact with and (suspected) exposure to COVID-19; B96.89 Other specified bacterial agents as the cause of diseases classified elsewhere; I10 Essential (primary) hypertension; F31.9 Bipolar disorder, unspecified; F17.200 Nicotine dependence, unspecified, uncomplicated; Z98.51 Tubal ligation status; Z79.899 Other long term (current) drug therapy
CPT/HCPCS: 36415; 80048; 80307; 81001; 84703; 85007; 85025; 87210; 87591; 99284; U0003; 80320; G0480

== ENCOUNTER 2021-05-02 05:35 | Emergency (ER) | payer SELFPAY ==
--- NOTE | 2021-05-02 10:45 | Emergency Department Report ---
ED Rash HPI - HPI Chief Complaint: Skin Rash Stated Complaint: PERICYTES Time Seen by Provider: 05/02/21 09:30 Duration: 4 Days Location: Chest, Back Suspected Cause: Unknown Rash Symptoms: Yes Itching, No Facial Swelling, No Tongue/Oral Swelling, No Breathing Difficulties, No Choking Sensation, No Wheezing/Dyspnea, No Peeling, No Blistering, No Fever, No Lightheaded, No Malaise, No Myalgias Severity: mild Other History: This is a 30-year-old female nontoxic, well nourished in appearance, no acute signs of distress presents to the ED with c/o of itching and small maculopapular rash to chest and back and bilateral arms. Patient states she started to sleep in her friend's house prior to symptoms. Patient states it is itching and redness. Patient denies any drooling, hoarseness or facial swelling. Patient denies any trauma. She denies any fever, chills, nausea, vomiting, chest pain, shortness of breath, headache, stiff neck, numbness or tingling. Patient denies any drug allergies or significant past medical history. ED Review of Systems ROS: Stated complaint: PERICYTES Other details as noted in HPI Constitutional: denies: chills, fever Eyes: denies: eye pain, eye discharge, vision change ENT: denies: ear pain, throat pain Respiratory: denies: cough, shortness of breath, wheezing Cardiovascular: denies: chest pain, palpitations Endocrine: no symptoms reported Gastrointestinal: denies: abdominal pain, nausea, diarrhea Genitourinary: denies: urgency, dysuria, discharge Musculoskeletal: denies: back pain, joint swelling, arthralgia Skin: rash. denies: lesions, change in color, change in hair/nails, pruritus Neurological: denies: headache, weakness, paresthesias Psychiatric: denies: anxiety, depression Hematological/Lymphatic: denies: easy bleeding, easy bruising ED Past Medical Hx - Past Medical History Previous Medical History?: Yes Hx Hypertension: Yes Hx Congestive Heart Failure: No Hx Diabetes: No Hx Deep Vein Thrombosis: No Hx Renal Disease: No Hx Sickle Cell Disease: No Hx Seizures: No Hx Psychiatric Treatment: Yes (depression, bipolar, insomnia, schizophrenia) Hx Asthma: No Hx COPD: No Hx HIV: No - Surgical History Past Surgical History?: Yes Additional Surgical History: tubal ligation - Social History Smoking Status: Current Every Day Smoker Substance Use Type: Alcohol - Medications Home Medications: Home Medications Medication Instructions Recorded Confirmed Last Taken Type Multivitamin [Multiple Vitamins] 1 each PO QDAY 30 Days #30 tablet 08/08/18 01/03/21 Unknown Rx Albuterol Sulfate [Proventil Hfa] 1 - 2 puff IH Q6H PRN #1 hfa.aer.ad 07/30/19 01/03/21 Unknown Rx Ibuprofen [Motrin 600 MG tab] 600 mg PO Q8H PRN #15 tablet 07/30/19 01/03/21 Unknown Rx FLUoxetine [PROzac] 20 mg PO QDAY #30 capsule 01/05/21 Unknown Rx OLANzapine [ZyPREXA] 7.5 mg PO DAILY #30 tablet 01/05/21 Unknown Rx traZODone [Desyrel] 50 mg PO QHS #30 tab 01/05/21 Unknown Rx metroNIDAZOLE [Flagyl] 500 mg PO Q12HR #14 tab 04/21/21 Unknown Rx diphenhydrAMINE [Benadryl CAP] 25 mg PO Q8HR PRN #12 capsule 05/02/21 Unknown Rx Rash Exam - Exam General: Vital signs noted. No distress. Alert and acting appropriately. HEENT: No Periorbital Edema, No Conjuctival Injection, No Chemosis, No Perioral Edema, No Tongue Edema, No Uvular Edema, No Compromised Airway, No Drooling Lungs: Yes Good Air Exchange (Normal Breath Sounds), No Wheezes, No Ronchi, No Stridor, No Cough, No Labored Respirations, No Retractions, No Use of Accessory Muscles, No Other Abnormal Lung Sounds Heart: Yes Regular, No Murmur Skin: Yes Other (erythematous papule with small puncate areas to back, chest, and bilateral arms), No Urticarial Rash, No Maculopapular Rash, No Morbilliform rash, No Bulla(e), No Excoriations, No Weeping, No Tenderness, No Erythema, No Edema, No Encrustations Other: Positive: Abdomen Normal, Neurologic Normal, Musculoskeletal Normal ED Course Vital Signs 05/02/21 05:54 Temperature 97.3 F L Pulse Rate 77 Respiratory 18 Rate Blood Pressure 117/76 O2 Sat by Pulse 100 Oximetry - Reevaluation(s) Reevaluation #1: 05/02/21 10:43 Patient is speaking in full sentences with no signs of distress noted. ED Medical Decision Making - Medical Decision Making 30-year-old female that presents with possible bedbugs. Patient is stable and w as examined by me. There is no facial swelling. No angioedema. There is no cellulitis. No hoarseness. Patient be discharged with Benadryl p.o. Patient educated on bedbugs and proper way of changing sheets and clothing. Patient was referred to Follow-up with a primary care doctor in 3-5 days or if symptoms worsen and continue return to emergency room as soon as possible. At time of discharge, the patient does not seem toxic or ill in appearance. No acute signs of distress noted. Patient agrees to discharge treatment plan of care. No further questions noted by the patient. Critical care attestation.: If time is entered above; I have spent that time in minutes in the direct care of this critically ill patient, excluding procedure time. ED Disposition Clinical Impression: Bedbug bite Qualifiers: Encounter type: initial encounter Qualified Code(s): W57.XXXA - Bitten or stung by nonvenomous insect and other nonvenomous arthropods, initial encounter Disposition: DC- TO HOME OR SELFCARE Is pt being admited?: No Does the pt Need Aspirin: No Condition: Stable Instructions: Bedbugs, [id number] Additional Instructions: Follow-up with a primary care doctor in 3-5 days or if symptoms worsen and continue return to emergency room as soon as possible. Prescriptions: diphenhydrAMINE [Benadryl CAP] 25 mg PO Q8HR PRN #12 capsule PRN Reason: Itching Referrals: PRIMARY MD NOEL [Primary Care Provider] - 3-5 Days GIFTY JAIME MD [Staff Physician] - 3-5 Days Time of Disposition: 10:53
[2021-05-02 11:16] VITALS: BP 131/80
== END 2021-05-02 11:15 | disposition home or self-care (01) ==
LOC: ED 05:35
DX: S40.862A Insect bite (nonvenomous) of left upper arm, initial encounter (principal); S40.861A Insect bite (nonvenomous) of right upper arm, initial encounter; S20.369A Insect bite (nonvenomous) of unspecified front wall of thorax, initial encounter; S20.469A Insect bite (nonvenomous) of unspecified back wall of thorax, initial encounter; I10 Essential (primary) hypertension; F31.9 Bipolar disorder, unspecified; F17.200 Nicotine dependence, unspecified, uncomplicated; Z98.51 Tubal ligation status; Z72.89 Other problems related to lifestyle; Z79.899 Other long term (current) drug therapy; W57.XXXA Bitten or stung by nonvenomous insect and other nonvenomous arthropods, initial encounter; Y93.89 Activity, other specified; Y92.488 Other paved roadways as the place of occurrence of the external cause; Y99.8 Other external cause status
CPT/HCPCS: 99283

== ENCOUNTER 2021-05-24 16:00 | Emergency (ER) | payer SELFPAY ==
[2021-05-24 16:24] VITALS: BP 132/96
[2021-05-24] MEDS ORDERED: HYDROcodone/ACETAMINOPHEN 5-325 MG TAB PO STA (20:00)
--- NOTE | 2021-05-24 20:03 | Emergency Department Report ---
ED Lower Extremity HPI - General Chief Complaint: Extremity Injury, Lower Stated Complaint: FOOT INJURY Time Seen by Provider: 05/24/21 19:59 Source: patient Mode of arrival: Stretcher Limitations: No Limitations - History of Present Illness MD Complaint: foot injury -: Gradual, Last night Injury: Foot: Left Type of Injury: other Place: home, other (jumped over a fence and landed akwardly) Severity: mild, moderate Improves With: nothing Worsens With: weight bearing, movement, palpation Context: fall - Related Data Previous Rx's Medication Instructions Recorded Last Taken Type Multivitamin [Multiple Vitamins] 1 each PO QDAY 30 Days #30 tablet 08/08/18 Unknown Rx Albuterol Sulfate [Proventil Hfa] 1 - 2 puff IH Q6H PRN #1 hfa.aer.ad 07/30/19 Unknown Rx Ibuprofen [Motrin 600 MG tab] 600 mg PO Q8H PRN #15 tablet 07/30/19 Unknown Rx FLUoxetine [PROzac] 20 mg PO QDAY #30 capsule 01/05/21 Unknown Rx OLANzapine [ZyPREXA] 7.5 mg PO DAILY #30 tablet 01/05/21 Unknown Rx traZODone [Desyrel] 50 mg PO QHS #30 tab 01/05/21 Unknown Rx metroNIDAZOLE [Flagyl] 500 mg PO Q12HR #14 tab 04/21/21 Unknown Rx diphenhydrAMINE [Benadryl CAP] 25 mg PO Q8HR PRN #12 capsule 05/02/21 Unknown Rx Ketorolac [Toradol] 10 mg PO Q6H PRN #10 tablet 05/24/21 Unknown Rx Allergies Allergy/AdvReac Type Severity Reaction Status Date / Time No Known Allergies Allergy Verified 01/10/20 23:27 ED Review of Systems ROS: Stated complaint: FOOT INJURY Other details as noted in HPI Comment: All other systems reviewed and negative ED Past Medical Hx - Past Medical History Hx Hypertension: Yes Hx Congestive Heart Failure: No Hx Diabetes: No Hx Deep Vein Thrombosis: No Hx Renal Disease: No Hx Sickle Cell Disease: No Hx Seizures: No Hx Psychiatric Treatment: Yes (depression, bipolar, insomnia, schizophrenia) Hx Asthma: No Hx COPD: No Hx HIV: No - Surgical History Additional Surgical History: tubal ligation - Social History Smoking Status: Current Every Day Smoker Substance Use Type: Alcohol - Medications Home Medications: Home Medications Medication Instructions Recorded Confirmed Last Taken Type Multivitamin [Multiple Vitamins] 1 each PO QDAY 30 Days #30 tablet 08/08/18 01/03/21 Unknown Rx Albuterol Sulfate [Proventil Hfa] 1 - 2 puff IH Q6H PRN #1 hfa.aer.ad 07/30/19 01/03/21 Unknown Rx Ibuprofen [Motrin 600 MG tab] 600 mg PO Q8H PRN #15 tablet 07/30/19 01/03/21 Unknown Rx FLUoxetine [PROzac] 20 mg PO QDAY #30 capsule 01/05/21 Unknown Rx OLANzapine [ZyPREXA] 7.5 mg PO DAILY #30 tablet 01/05/21 Unknown Rx traZODone [Desyrel] 50 mg PO QHS #30 tab 01/05/21 Unknown Rx metroNIDAZOLE [Flagyl] 500 mg PO Q12HR #14 tab 04/21/21 Unknown Rx diphenhydrAMINE [Benadryl CAP] 25 mg PO Q8HR PRN #12 capsule 05/02/21 Unknown Rx Ketorolac [Toradol] 10 mg PO Q6H PRN #10 tablet 05/24/21 Unknown Rx ED Physical Exam - General Limitations: No Limitations General appearance: alert, in no apparent distress - Head Head exam: Present: atraumatic, normocephalic - Eye Eye exam: Present: normal appearance - ENT ENT exam: Present: mucous membranes moist - Neck Neck exam: Present: normal inspection - Respiratory Respiratory exam: Present: normal lung sounds bilaterally. Absent: respiratory distress - Cardiovascular Cardiovascular Exam: Present: regular rate, normal rhythm. Absent: systolic murmur, diastolic murmur, rubs, gallop - GI/Abdominal GI/Abdominal exam: Present: soft, normal bowel sounds - Extremities Exam Extremities exam: Present: normal inspection, tenderness, joint swelling - Expanded Lower Extremity Exam Left Foot/Toe exam: Present: tenderness, swelling, ecchymosis, tenderness at base of 5th metatarsal. Absent: abrasion, laceration, crepidus, amputation, puncture wound, subungual hematoma Neuro vascular tendon exam: Present: no vascular compromise. Absent: pulse deficit, abnormal cap refill Gait: Positive: unable to bear weight - Back Exam Back exam: Present: normal inspection - Neurological Exam Neurological exam: Present: alert, oriented X3 - Psychiatric Psychiatric exam: Present: normal affect, normal mood - Skin Skin exam: Present: warm, dry, intact, normal color. Absent: rash ED Course Vital Signs 05/24/21 16:22 Temperature 98 F Pulse Rate 94 H Respiratory 16 Rate Blood Pressure 132/96 [Right] O2 Sat by Pulse 98 Oximetry ED Lower Extremity MDM - Radiology Data Radiology results: report reviewed [facility] [address] [place] [address] XRay Report Signed Patient: PATRICE WAHL MR#: [id number] : 1990 Acct:[id number] Age/Sex: 30 / F ADM Date: 05/24/21 Loc: ED Attending Dr: Ordering Physician: RALPH KWOK Date of Service: 05/24/21 Procedure(s): XR foot 3+V LT Accession Number(s): [id number] cc: RALPH KWOK Fluoro Time In Minutes: LEFT FOOT 3 VIEWS INDICATION / CLINICAL INFORMATION: foot pain and swelling jumping over fence COMPARISON: None available. FINDINGS: BONES / JOINT(S): No acute fracture or subluxation. No significant arthritis. SOFT TISSUES: No significant abnormality. ADDITIONAL FINDINGS: None. Signer Name: Jose R Mckinley MD Signed: 05/24/2021 8:40 PM Workstation Name: [id number] Transcribed By: ES Dictated By: Jose R Mckniley MD Electronically Authenticated By: Jose R Mckinley MD Signed Date/Time: 05/24/212039 DD/ 39 TD/TT: Print Cancel Critical care attestation.: If time is entered above; I have spent that time in minutes in the direct care of this critically ill patient, excluding procedure time. ED Disposition Clinical Impression: Contusion of left foot Disposition: DC-01 TO HOME OR SELFCARE Is pt being admited?: No Does the pt Need Aspirin: No Condition: Stable Instructions: Foot Contusion, [id number], Contusion, [id number], Contusion, How to Use Cold Therapy Additional Instructions: YOU WERE EVALUATED IN THE ER TODAY FOR A FOOT INJURY. XRAYS OF YOUR FOOT DISCOVERED NO FRACTURES OR DISLOCATIONS. YOUR INJURIES ARE SECONDARY TO SOFT TISSUE TRAUMA. PLEASE ICE YOUR FOOT AND TAKE TYLENOL AND YOUR PRESCRIBED MEDICATIONS FOR THE DISCOMFORT. YOUHAVE BEEN GIVEN CRUTCHES FOR COMFORT. PLEASE BE SURE TO F/U WITH YOUR PCP OR THE ORTHO PROVIDER IN 3-5 DAYS FOR RE-EVALUATION Prescriptions: Ketorolac [Toradol] 10 mg PO Q6H PRN #10 tablet PRN Reason: Pain Referrals: PRIMARY CAREMD [Primary Care Provider] - 3-5 Days VIVIAN BARNES MD [Staff Physician] - 3-[address] [facility] [Provider Group] - 3-5 Days
--- NOTE | 2021-05-24 20:44 | XRay Report ---
LEFT FOOT 3 VIEWS INDICATION / CLINICAL INFORMATION: foot pain and swelling jumping over fence COMPARISON: None available. FINDINGS: BONES / JOINT(S): No acute fracture or subluxation. No significant arthritis. SOFT TISSUES: No significant abnormality. ADDITIONAL FINDINGS: None. Signer Name: Jose R Mckinley MD Signed: 05/24/2021 8:40 PM Workstation Name: [id number]
== END 2021-05-24 21:20 | disposition home or self-care (01) ==
LOC: ED 16:00
DX: S90.32XA Contusion of left foot, initial encounter (principal); F31.9 Bipolar disorder, unspecified; F17.200 Nicotine dependence, unspecified, uncomplicated; F20.9 Schizophrenia, unspecified; G47.00 Insomnia, unspecified; Z72.89 Other problems related to lifestyle; Z79.899 Other long term (current) drug therapy; W22.8XXA Striking against or struck by other objects, initial encounter; Y93.89 Activity, other specified; Y92.89 Other specified places as the place of occurrence of the external cause; Y99.8 Other external cause status
CPT/HCPCS: 99283

== ENCOUNTER 2021-09-17 20:36 | Emergency (ER) | payer SELFPAY ==
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
[2021-09-17 21:53] LABS: Basophils % (Auto) 0.5 % (0.0-1.8); Eosinophils # (Auto) 0.1 K/mm3 (0.0-0.4); Eosinophils % (Auto) 1.3 % (0.0-4.3); Hematocrit 35.8 % (30.3-42.9); Hemoglobin 11.5 gm/dl (10.1-14.3); Lymphocytes # (Auto) 1.7 K/mm3 (1.2-5.4); Lymphocytes % (Auto) 28.1 % (13.4-35.0); Mean Corpuscular HGB Conc 32 % (30-34); Mean Corpuscular Volume 89 fl (79-97); Monocytes # (Auto) 0.8 K/mm3 (0.0-0.8); Monocytes % (Auto) 13.1 % (0.0-7.3); Platelet Count 268 K/mm3 (140-440); Red Blood Count 4.01 M/mm3 (3.65-5.03); Red Cell Distribution Width 19.6 % (13.2-15.2)
[2021-09-17 21:59] LABS: BUN/Creatinine Ratio 18; Blood Urea Nitrogen 14 mg/dL (7-17); Calcium 8.8 mg/dL (8.4-10.2); Hemolysis Index 9
[2021-09-17 22:59] LABS: Bacteria,Urine 1+ /HPF (Negative); Bilirubin,Urine NEG (Negative); Blood,Urine NEG (Negative); Color,Urine Yellow (Yellow); Mucus,Urine FEW /HPF; Protein,Urine <15 mg/dL mg/dL (Negative)
[2021-09-17] MEDS ORDERED: AZITHROMYCIN 1 GM ORAL PWDR PACKET PO ONE (23:11)
[2021-09-17] MEDS ORDERED: LIDOCAINE-MPF (1%) 10 MG/1 ML VIAL 5 ML INFILTRATI ONE (23:11)
[2021-09-17 23:19] LABS: Amphetamine Screen,Urine PRESUMPTIVE POSITIVE; Benzodiazepines Screen,Urine PRESUMPTIVE NEGATIVE; Cannabinoid Screen,Urine PRESUMPTIVE NEGATIVE; Cocaine Screen,Urine PRESUMPTIVE POSITIVE; Methadone Screen,Urine PRESUMPTIVE NEGATIVE; Opiate Screen,Urine PRESUMPTIVE NEGATIVE
[2021-09-18 08:16] VITALS: BP 110/60
[2021-09-18] MEDS ORDERED: diphenhydrAMINE 25 MG CAP PO PRN (11:08)
[2021-09-18] MEDS ORDERED: LORazepam 2 MG/ML VIAL IM PRN (11:08)
[2021-09-18] MEDS ORDERED: ACETAMINOPHEN 325 MG TAB PO PRN (11:08)
[2021-09-18] MEDS ORDERED: HALOPERIDOL LACTATE 5 MG/1 ML INJ IM PRN (11:08)
[2021-09-18] MEDS ORDERED: ONDANSETRON 4 MG ODT TAB PO PRN (11:08)
--- NOTE | 2021-09-18 11:09 | Event Note ---
Date: 09/18/21 The patient was evaluated in the emergency department for symptoms described in the history of present illness. He/she was evaluated in the context of the global COVID-19 pandemic, which necessitated consideration that the patient might be at risk for infection with the virus that causes COVID-19. Institutional protocols and algorithms that pertain to the evaluation of patients at risk for COVID-19 are in a state of rapid change based on information released by regulatory bodies including the CDC and federal and state organizations. These policies and algorithms were followed during the patient's care in the emergency department. Please note that these policies, procedures and recommendations changed on a rapid basis. Laboratory studies, vital signs, nursing documentation, ER documentation, and psychiatric documentation are reviewed and appreciated. Nursing team reports no acute events this morning or concerns. Patient is endorsing homicidality. 1013 form was filled out by the initial ER provider. 1013 form was also ordered by the ER provider of initial contact. The patient is awake and ambulating and does not appear to be in any acute distress. The patient was deemed medically suitable for psychiatric disposition and placement during her initial ER evaluation. The patient continues to remain medically suitable for psychiatric placement and disposition. sHe is currently pending psychiatric placement/consultation. Vital Signs 09/17/21 09/18/21 20:49 08:15 Temperature 98.0 F 97.6 F Pulse Rate 85 80 Respiratory 18 18 Rate Blood Pressure 86/51 Blood Pressure 110/60 [Left] O2 Sat by Pulse 99 100 Oximetry Lab Results 09/17/21 09/17/21 09/17/21 Range/Units 21:30 21:30 21:30 WBC 5.9 (4.5-11.0) K/mm3 RBC 4.01 (3.65-5.03) M/mm3 Hgb 11.5 (10.1-14.3) gm/dl Hct 35.8 (30.3-42.9) % MCV 89 (79-97) fl MCH 29 (28-32) pg MCHC 32 (30-34) % RDW 19.6 H (13.2-15.2) % Plt Count 268 (140-440) K/mm3 Lymph % (Auto) 28.1 (13.4-35.0) % [place] % (Auto) 13.1 H (0.0-7.3) % Eos % (Auto) 1.3 (0.0-4.3) % Baso % (Auto) 0.5 (0.0-1.8) % Lymph # (Auto) 1.7 (1.2-5.4) K/mm3 [place] # (Auto) 0.8 (0.0-0.8) K/mm3 Eos # (Auto) 0.1 (0.0-0.4) K/mm3 Baso # (Auto) 0.0 (0.0-0.1) K/mm3 Seg Neutrophils % 57.0 (40.0-70.0) % Seg Neutrophils # 3.4 (1.8-7.7) K/mm3 Sodium 135 L (137-145) mmol/L Potassium 4.1 (3.6-5.0) mmol/L Chloride 100.6 (98-107) mmol/L Carbon Dioxide 24 (22-30) mmol/L Anion Gap 15 mmol/L BUN 14 (7-17) mg/dL Creatinine 0.8 (0.6-1.2) mg/dL Estimated GFR > 60 ml/min BUN/Creatinine Ratio 18 % Glucose 82 (65-100) mg/dL Calcium 8.8 (8.4-10.2) mg/dL HCG, Qual (Negative) Urine Color (Yellow) Urine Turbidity (Clear) Urine pH (5.0-7.0) Ur Specific [place] (1.003-1.030) Urine Protein (Negative) mg/dL Urine Glucose (UA) (Negative) mg/dL Urine Ketones (Negative) mg/dL Urine Blood (Negative) Urine Nitrite (Negative) Urine Bilirubin (Negative) Urine Urobilinogen (<2.0) mg/dL Ur Leukocyte Esterase (Negative) Urine WBC (Auto) (0.0-6.0) /HPF Urine RBC (Auto) (0.0-6.0) /HPF U Epithel Cells (Auto) (0-13.0) /HPF Urine Bacteria (Auto) (Negative) /HPF Urine Mucus /HPF Salicylates < 0.3 L (2.8-20.0) mg/dL Urine Opiates Screen Urine Methadone Screen Acetaminophen (10.0-30.0) ug/mL Ur Barbiturates Screen Ur Phencyclidine Scrn Ur Amphetamines Screen U Benzodiazepines Scrn Urine Cocaine Screen U Marijuana (THC) Screen Drugs of Abuse Note Plasma/Serum Alcohol (0-0.07) % 09/17/21 09/17/21 09/17/21 Range/Units 21:30 21:30 21:30 WBC (4.5-11.0) K/mm3 RBC (3.65-5.03) M/mm3 Hgb (10.1-14.3) gm/dl Hct (30.3-42.9) % MCV (79-97) fl MCH (28-32) pg MCHC (30-34) % RDW (13.2-15.2) % Plt Count (140-440) K/mm3 Lymph % (Auto) (13.4-35.0) % [place] % (Auto) (0.0-7.3) % Eos % (Auto) (0.0-4.3) % Baso % (Auto) (0.0-1.8) % Lymph # (Auto) (1.2-5.4) K/mm3 [place] # (Auto) (0.0-0.8) K/mm3 Eos # (Auto) (0.0-0.4) K/mm3 Baso # (Auto) (0.0-0.1) K/mm3 Seg Neutrophils % (40.0-70.0) % Seg Neutrophils # (1.8-7.7) K/mm3 Sodium (137-145) mmol/L Potassium (3.6-5.0) mmol/L Chloride (98-107) mmol/L Carbon Dioxide (22-30) mmol/L Anion Gap mmol/L BUN (7-17) mg/dL Creatinine (0.6-1.2) mg/dL Estimated GFR ml/min BUN/Creatinine Ratio % Glucose (65-100) mg/dL Calcium (8.4-10.2) mg/dL HCG, Qual Negative (Negative) Urine Color (Yellow) Urine Turbidity (Clear) Urine pH (5.0-7.0) Ur Specific [place] (1.003-1.030) Urine Protein (Negative) mg/dL Urine Glucose (UA) (Negative) mg/dL Urine Ketones (Negative) mg/dL Urine Blood (Negative) Urine Nitrite (Negative) Urine Bilirubin (Negative) Urine Urobilinogen (<2.0) mg/dL Ur Leukocyte Esterase (Negative) Urine WBC (Auto) (0.0-6.0) /HPF Urine RBC (Auto) (0.0-6.0) /HPF U Epithel Cells (Auto) (0-13.0) /HPF Urine Bacteria (Auto) (Negative) /HPF Urine Mucus /HPF Salicylates (2.8-20.0) mg/dL Urine Opiates Screen Urine Methadone Screen Acetaminophen 5.0 L (10.0-30.0) ug/mL Ur Barbiturates Screen Ur Phencyclidine Scrn Ur Amphetamines Screen U Benzodiazepines Scrn Urine Cocaine Screen U Marijuana (THC) Screen Drugs of Abuse Note Plasma/Serum Alcohol < 0.01 (0-0.07) % 09/17/21 09/17/21 Range/Units Unknown Unknown WBC (4.5-11.0) K/mm3 RBC (3.65-5.03) M/mm3 Hgb (10.1-14.3) gm/dl Hct (30.3-42.9) % MCV (79-97) fl MCH (28-32) pg MCHC (30-34) % RDW (13.2-15.2) % Plt Count (140-440) K/mm3 Lymph % (Auto) (13.4-35.0) % [place] % (Auto) (0.0-7.3) % Eos % (Auto) (0.0-4.3) % Baso % (Auto) (0.0-1.8) % Lymph # (Auto) (1.2-5.4) K/mm3 [place] # (Auto) (0.0-0.8) K/mm3 Eos # (Auto) (0.0-0.4) K/mm3 Baso # (Auto) (0.0-0.1) K/mm3 Seg Neutrophils % (40.0-70.0) % Seg Neutrophils # (1.8-7.7) K/mm3 Sodium (137-145) mmol/L Potassium (3.6-5.0) mmol/L Chloride (98-107) mmol/L Carbon Dioxide (22-30) mmol/L Anion Gap mmol/L BUN (7-17) mg/dL Creatinine (0.6-1.2) mg/dL Estimated GFR ml/min BUN/Creatinine Ratio % Glucose (65-100) mg/dL Calcium (8.4-10.2) mg/dL HCG, Qual (Negative) Urine Color Yellow (Yellow) Urine Turbidity Slightly-cloudy (Clear) Urine pH 7.0 (5.0-7.0) Ur Specific [place] 1.011 (1.003-1.030) Urine Protein <15 mg/dl (Negative) mg/dL Urine Glucose (UA) Neg (Negative) mg/dL Urine Ketones Neg (Negative) mg/dL Urine Blood Neg (Negative) Urine Nitrite Neg (Negative) Urine Bilirubin Neg (Negative) Urine Urobilinogen 2.0 (<2.0) mg/dL Ur Leukocyte Esterase Neg (Negative) Urine WBC (Auto) 1.0 (0.0-6.0) /HPF Urine RBC (Auto) 11.0 (0.0-6.0) /HPF U Epithel Cells (Auto) 11.0 (0-13.0) /HPF Urine Bacteria (Auto) 1+ (Negative) /HPF Urine Mucus Few /HPF Salicylates (2.8-20.0) mg/dL Urine Opiates Screen Presumptive negative Urine Methadone Screen Presumptive negative Acetaminophen (10.0-30.0) ug/mL Ur Barbiturates Screen Presumptive negative Ur Phencyclidine Scrn Presumptive negative Ur Amphetamines Screen Presumptive positive U Benzodiazepines Scrn Presumptive negative Urine Cocaine Screen Presumptive positive U Marijuana (THC) Screen Presumptive negative Drugs of Abuse Note Disclamer Plasma/Serum Alcohol (0-0.07) %
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
== END 2021-09-18 14:54 | disposition home or self-care (01) ==
LOC: ED 20:36 → EEVIPCON 20:36 → ED 09-18 14:54
DX: R45.851 Suicidal ideations (principal); N89.8 Other specified noninflammatory disorders of vagina; Z20.822 Contact with and (suspected) exposure to COVID-19; F19.10 Other psychoactive substance abuse, uncomplicated; I10 Essential (primary) hypertension; F31.9 Bipolar disorder, unspecified; F20.9 Schizophrenia, unspecified; F17.200 Nicotine dependence, unspecified, uncomplicated; Z98.51 Tubal ligation status; F14.90 Cocaine use, unspecified, uncomplicated; Z72.89 Other problems related to lifestyle; Z79.899 Other long term (current) drug therapy
CPT/HCPCS: 36415; 80048; 80307; 81001; 84703; 85025; 87210; 87591; 96372; 99284; J0696; U0003; 80320; G0480

== ENCOUNTER 2021-12-03 04:13 | Emergency (ER) | payer SELFPAY ==
--- NOTE | 2021-12-03 06:23 | Emergency Department Report ---
ED Psych HPI - General Chief Complaint: Dyspnea/Respdistress Stated Complaint: DIFFICULTY BREATHING Time Seen by Provider: 12/03/21 06:01 Source: EMS Mode of arrival: Ambulatory - History of Present Illness Initial Comments: Chief complaint: "I have mental illness. I need refill of medications." HPI: This is a 31-year-old female with history of depression, bipolar, schizophrenia who presents via EMS for shortness of breath and depression. She was transported by EMS. She is currently homeless. She denies suicidal homicidal ideation. She denies auditory hallucinations. She desires refill of medications including Zyprexa and Prozac. She stated that she had mild shortness of breath. She denies cough or wheezing. She denies chest pain or fever. MD Complaint: feels depressed -: Gradual, days(s) (Several days) Associated Psychiatric Symptoms: depression History of same: Yes Quality: constant Improves With: medication Context: not taking psychiatric Associated Symptoms: shortness of breath Treatments Prior to Arrival: other (EMS transportation) - Related Data Previous Rx's Medication Instructions Recorded Last Taken Type Multivitamin [Multiple Vitamins] 1 each PO QDAY 30 Days #30 tablet 08/08/18 Unknown Rx Albuterol Sulfate [Proventil Hfa] 1 - 2 puff IH Q6H PRN #1 hfa.aer.ad 07/30/19 Unknown Rx Ibuprofen [Motrin 600 MG tab] 600 mg PO Q8H PRN #15 tablet 07/30/19 Unknown Rx FLUoxetine [PROzac] 20 mg PO QDAY #30 capsule 01/05/21 Unknown Rx OLANzapine [ZyPREXA] 7.5 mg PO DAILY #30 tablet 01/05/21 Unknown Rx traZODone [Desyrel] 50 mg PO QHS #30 tab 01/05/21 Unknown Rx metroNIDAZOLE [Flagyl] 500 mg PO Q12HR #14 tab 04/21/21 Unknown Rx diphenhydrAMINE [Benadryl CAP] 25 mg PO Q8HR PRN #12 capsule 05/02/21 Unknown Rx Ketorolac [Toradol] 10 mg PO Q6H PRN #10 tablet 05/24/21 Unknown Rx FLUoxetine [PROzac] 20 mg PO QDAY 30 Days #30 capsule 09/18/21 Unknown Rx OLANzapine [ZyPREXA] 10 mg PO DAILY 30 Days #30 tablet 09/18/21 Unknown Rx FLUoxetine [PROzac] 20 mg PO QDAY 14 Days #14 capsule 12/03/21 Unknown Rx OLANzapine [ZyPREXA] 10 mg PO DAILY 14 Days #14 tablet 12/03/21 Unknown Rx Allergies Allergy/AdvReac Type Severity Reaction Status Date / Time No Known Allergies Allergy Verified 12/03/21 04:16 ED Review of Systems ROS: Stated complaint: DIFFICULTY BREATHING Other details as noted in HPI Comment: All other systems reviewed and negative Constitutional: denies: fever, malaise Respiratory: shortness of breath. denies: cough, wheezing Cardiovascular: denies: chest pain Psychiatric: depression. denies: auditory hallucinations, visual hallucinations, homicidal thoughts, suicidal thoughts ED Past Medical Hx - Past Medical History Previous Medical History?: Yes Hx Hypertension: Yes Hx Congestive Heart Failure: No Hx Diabetes: No Hx Deep Vein Thrombosis: No Hx Renal Disease: No Hx Sickle Cell Disease: No Hx Seizures: No Hx Psychiatric Treatment: Yes (depression, bipolar, insomnia, schizophrenia) Hx Asthma: No Hx COPD: No Hx HIV: No - Surgical History Past Surgical History?: Yes Additional Surgical History: tubal ligation - Social History Smoking Status: Current Some Day Smoker Substance Use Type: Alcohol (Occasional), Cocaine (Last used a "few days ago") - Medications Home Medications: Home Medications Medication Instructions Recorded Confirmed Last Taken Type Multivitamin [Multiple Vitamins] 1 each PO QDAY 30 Days #30 tablet 08/08/18 01/03/21 Unknown Rx Albuterol Sulfate [Proventil Hfa] 1 - 2 puff IH Q6H PRN #1 hfa.aer.ad 07/30/19 01/03/21 Unknown Rx Ibuprofen [Motrin 600 MG tab] 600 mg PO Q8H PRN #15 tablet 07/30/19 01/03/21 Unknown Rx FLUoxetine [PROzac] 20 mg PO QDAY #30 capsule 01/05/21 Unknown Rx OLANzapine [ZyPREXA] 7.5 mg PO DAILY #30 tablet 01/05/21 Unknown Rx traZODone [Desyrel] 50 mg PO QHS #30 tab 01/05/21 Unknown Rx metroNIDAZOLE [Flagyl] 500 mg PO Q12HR #14 tab 04/21/21 Unknown Rx diphenhydrAMINE [Benadryl CAP] 25 mg PO Q8HR PRN #12 capsule 05/02/21 Unknown Rx Ketorolac [Toradol] 10 mg PO Q6H PRN #10 tablet 05/24/21 Unknown Rx FLUoxetine [PROzac] 20 mg PO QDAY 30 Days #30 capsule 09/18/21 Unknown Rx OLANzapine [ZyPREXA] 10 mg PO DAILY 30 Days #30 tablet 09/18/21 Unknown Rx FLUoxetine [PROzac] 20 mg PO QDAY 14 Days #14 capsule 12/03/21 Unknown Rx OLANzapine [ZyPREXA] 10 mg PO DAILY 14 Days #14 tablet 12/03/21 Unknown Rx ED Physical Exam - General Limitations: No Limitations General appearance: alert, in no apparent distress, other (Sleeping on exam table easily arousable in left lateral decubitus position without respiratory distress) - Head Head exam: Present: atraumatic, normocephalic - Eye Eye exam: Present: normal appearance - ENT ENT exam: Present: mucous membranes moist - Neck Neck exam: Present: normal inspection, full ROM - Respiratory Respiratory exam: Present: normal lung sounds bilaterally. Absent: respiratory distress, wheezes, rales, rhonchi - Cardiovascular Cardiovascular Exam: Present: regular rate, normal rhythm, normal heart sounds. Absent: systolic murmur, diastolic murmur, rubs, gallop - GI/Abdominal GI/Abdominal exam: Present: soft, normal bowel sounds. Absent: distended, tenderness, guarding, rebound - Extremities Exam Extremities exam: Present: normal inspection - Neurological Exam Neurological exam: Present: alert, oriented X3 - Psychiatric Psychiatric exam: Present: normal affect, normal mood - Skin Skin exam: Present: warm, dry, intact, normal color. Absent: rash ED Course Vital Signs 12/03/21 04:16 Temperature 98.5 F Pulse Rate 76 Respiratory 16 Rate Blood Pressure 110/74 [Left] O2 Sat by Pulse 100 Oximetry ED Medical Decision Making - Medical Decision Making 1. Medication refill history of depression and bipolar disorder schizophrenia. F provided 2-week prescription of Prozac and Zyprexa. Patient does not have suicidal ideation at this time she denies plan to harm her self. She repeatedly stated that she did not need inpatient stabilization. 2. Shortness of breath: No evidence of PE pneumonia respiratory distress. Oxygen 100% on room air. Heart rate 76 bpm. Critical care attestation.: If time is entered above; I have spent that time in minutes in the direct care of this critically ill patient, excluding procedure time. ED Disposition Clinical Impression: Medication refill, Bipolar disorder, Schizophrenia Disposition: 01 HOME / SELF CARE / HOMELESS Is pt being admited?: No Does the pt Need Aspirin: No Condition: Stable Prescriptions: FLUoxetine [PROzac] 20 mg PO QDAY 14 Days #14 capsule OLANzapine [ZyPREXA] 10 mg PO DAILY 14 Days #14 tablet
[2021-12-03 06:57] VITALS: BP 136/84
== END 2021-12-03 06:58 | disposition home or self-care (01) ==
LOC: ED 04:13
DX: F31.9 Bipolar disorder, unspecified (principal); F20.9 Schizophrenia, unspecified; Z76.0 Encounter for issue of repeat prescription; I10 Essential (primary) hypertension; F17.200 Nicotine dependence, unspecified, uncomplicated; Z72.89 Other problems related to lifestyle; Z98.51 Tubal ligation status; Z79.899 Other long term (current) drug therapy
CPT/HCPCS: 99283

== ENCOUNTER 2022-01-31 04:58 | Emergency (ER) | payer SELFPAY ==
[2022-01-31 05:58] VITALS: BP 135/67
--- NOTE | 2022-01-31 06:13 | Emergency Department Report ---
ED Abdominal Pain HPI - General Chief Complaint: Abdominal Pain Stated Complaint: ABD PAIN Time Seen by Provider: 01/31/22 06:08 Source: patient Mode of arrival: Stretcher Limitations: No Limitations - History of Present Illness Initial Comments: This is a 31-year-old female with a past medical history of bipolar disorder on Zyprexa and Zoloft who presents the emergency department with chief complaint of generalized lower abdominal pain that has been ongoing for the past 3 to 4 days. She reports associated dysuria and intermittent diarrhea. She states she had noticed a small amount of bright red blood when she wipes. She denies any associated fever, chills, night sweats, headache, dizziness, blurred vision, nausea, vomiting, chest pain, shortness of breath, vaginal discharge, pelvic pain, weakness or any other associated symptoms. She denies any previous surgeries. Denies any known allergies to medications. - Related Data Previous Rx's Medication Instructions Recorded Last Taken Type Multivitamin [Multiple Vitamins] 1 each PO QDAY 30 Days #30 tablet 08/08/18 Unknown Rx Albuterol Sulfate [Proventil Hfa] 1 - 2 puff IH Q6H PRN #1 hfa.aer.ad 07/30/19 Unknown Rx Ibuprofen [Motrin 600 MG tab] 600 mg PO Q8H PRN #15 tablet 07/30/19 Unknown Rx FLUoxetine [PROzac] 20 mg PO QDAY #30 capsule 01/05/21 Unknown Rx OLANzapine [ZyPREXA] 7.5 mg PO DAILY #30 tablet 01/05/21 Unknown Rx traZODone [Desyrel] 50 mg PO QHS #30 tab 01/05/21 Unknown Rx metroNIDAZOLE [Flagyl] 500 mg PO Q12HR #14 tab 04/21/21 Unknown Rx diphenhydrAMINE [Benadryl CAP] 25 mg PO Q8HR PRN #12 capsule 05/02/21 Unknown Rx Ketorolac [Toradol] 10 mg PO Q6H PRN #10 tablet 05/24/21 Unknown Rx FLUoxetine [PROzac] 20 mg PO QDAY 30 Days #30 capsule 09/18/21 Unknown Rx OLANzapine [ZyPREXA] 10 mg PO DAILY 30 Days #30 tablet 09/18/21 Unknown Rx FLUoxetine [PROzac] 20 mg PO QDAY 14 Days #14 capsule 12/03/21 Unknown Rx OLANzapine [ZyPREXA] 10 mg PO DAILY 14 Days #14 tablet 12/03/21 Unknown Rx Ibuprofen [Motrin 800 MG tab] 800 mg PO Q8HR PRN #30 tablet 01/31/22 Unknown Rx Nitrofurantoin [place]/M-Cryst 100 mg PO Q12HR #14 capsule 01/31/22 Unknown Rx [Macrobid CAP] Allergies Allergy/AdvReac Type Severity Reaction Status Date / Time No Known Allergies Allergy Verified 12/03/21 04:16 ED Review of Systems ROS: Stated complaint: ABD PAIN Other details as noted in HPI Comment: All other systems reviewed and negative Constitutional: denies: chills, fever Eyes: denies: eye pain, eye discharge, vision change ENT: denies: ear pain, throat pain Respiratory: denies: cough, shortness of breath, wheezing Cardiovascular: denies: chest pain, palpitations Endocrine: no symptoms reported Gastrointestinal: as per HPI, abdominal pain, diarrhea. denies: nausea Genitourinary: dysuria. denies: urgency, discharge Musculoskeletal: denies: back pain, joint swelling, arthralgia Skin: denies: rash, lesions Neurological: denies: headache, weakness, paresthesias Psychiatric: denies: anxiety, depression Hematological/Lymphatic: denies: easy bleeding, easy bruising ED Past Medical Hx - Past Medical History Previous Medical History?: Yes Hx Hypertension: Yes Hx Congestive Heart Failure: No Hx Diabetes: No Hx Deep Vein Thrombosis: No Hx Renal Disease: No Hx Sickle Cell Disease: No Hx Seizures: No Hx Psychiatric Treatment: Yes (depression, bipolar, insomnia, schizophrenia) Hx Asthma: Yes Hx COPD: No Hx HIV: No - Surgical History Past Surgical History?: Yes Additional Surgical History: tubal ligation - Social History Smoking Status: Never Smoker Substance Use Type: None - Medications Home Medications: Home Medications Medication Instructions Recorded Confirmed Last Taken Type Multivitamin [Multiple Vitamins] 1 each PO QDAY 30 Days #30 tablet 08/08/18 01/03/21 Unknown Rx Albuterol Sulfate [Proventil Hfa] 1 - 2 puff IH Q6H PRN #1 hfa.aer.ad 07/30/19 01/03/21 Unknown Rx Ibuprofen [Motrin 600 MG tab] 600 mg PO Q8H PRN #15 tablet 07/30/19 01/03/21 Unknown Rx FLUoxetine [PROzac] 20 mg PO QDAY #30 capsule 01/05/21 Unknown Rx OLANzapine [ZyPREXA] 7.5 mg PO DAILY #30 tablet 01/05/21 Unknown Rx traZODone [Desyrel] 50 mg PO QHS #30 tab 01/05/21 Unknown Rx metroNIDAZOLE [Flagyl] 500 mg PO Q12HR #14 tab 04/21/21 Unknown Rx diphenhydrAMINE [Benadryl CAP] 25 mg PO Q8HR PRN #12 capsule 05/02/21 Unknown Rx Ketorolac [Toradol] 10 mg PO Q6H PRN #10 tablet 05/24/21 Unknown Rx FLUoxetine [PROzac] 20 mg PO QDAY 30 Days #30 capsule 09/18/21 Unknown Rx OLANzapine [ZyPREXA] 10 mg PO DAILY 30 Days #30 tablet 09/18/21 Unknown Rx FLUoxetine [PROzac] 20 mg PO QDAY 14 Days #14 capsule 12/03/21 Unknown Rx OLANzapine [ZyPREXA] 10 mg PO DAILY 14 Days #14 tablet 12/03/21 Unknown Rx Ibuprofen [Motrin 800 MG tab] 800 mg PO Q8HR PRN #30 tablet 01/31/22 Unknown Rx Nitrofurantoin [place]/M-Cryst 100 mg PO Q12HR #14 capsule 01/31/22 Unknown Rx [Macrobid CAP] ED Physical Exam - General Limitations: No Limitations General appearance: alert, in no apparent distress - Head Head exam: Present: atraumatic, normocephalic - Eye Eye exam: Present: normal appearance, PERRL, EOMI Pupils: Present: normal accommodation - ENT ENT exam: Present: normal exam, normal orophraynx, mucous membranes moist - Neck Neck exam: Present: normal inspection, full ROM. Absent: tenderness, meningismus - Respiratory Respiratory exam: Present: normal lung sounds bilaterally. Absent: respiratory distress, wheezes, rales, rhonchi, stridor - Cardiovascular Cardiovascular Exam: Present: regular rate, normal rhythm, normal heart sounds. Absent: systolic murmur, diastolic murmur, rubs, gallop - GI/Abdominal GI/Abdominal exam: Present: soft, normal bowel sounds, other (No tenderness palpation, no rebound or guarding, negative McBurney's point tenderness, negative Velazquez sign, no CVA tenderness bilaterally). Absent: distended, tenderness, guarding, rebound, rigid - Extremities Exam Extremities exam: Present: normal inspection, full ROM, normal capillary refill. Absent: tenderness, calf tenderness - Back Exam Back exam: Present: normal inspection, full ROM. Absent: tenderness, CVA tenderness (R), CVA tenderness (L) - Neurological Exam Neurological exam: Present: alert, oriented X3, normal gait - Psychiatric Psychiatric exam: Present: normal affect, normal mood, flat affect - Skin Skin exam: Present: warm, dry, intact, normal color. Absent: rash ED Course Vital Signs 01/31/22 05:51 Temperature 98 F Pulse Rate 72 Respiratory 18 Rate Blood Pressure 135/67 O2 Sat by Pulse 100 Oximetry - Reevaluation(s) Reevaluation #1: 01/31/22 06:16 Patient is well-appearing, nontoxic, no acute distress. Vital signs are stable. Abdominal exam is benign. Patient has a past surgical history of tubal ligation per chart. Reports dysuria and generalized lower abdominal pain. Denies risk for STD or any vaginal discharge or pelvic pain. Will check urine and urine . Reevaluation #2: 01/31/22 07:51 Patient's urine returned consistent with urinary tract infection. We will start her on Macrobid and ibuprofen for pain. test is negative. Patient's exam is unremarkable no signs of peritonitis, negative Lakhwinder's point tenderness make appendicitis unlikely. No CVA tenderness making complicated UTI or ureterolithiasis unlikely. Patient is comfortable going home with this plan will follow up with primary care doctor return to the emerge department change worsening symptoms. She verbalized understand the diagnosis, treatment plan and follow-up instructions and all of her questions were answered. ED Medical Decision Making - Medical Decision Making Nontoxic, no acute distress, vital signs are stable. We will treat uncomplicated UTI with Macrobid and ibuprofen for pain. Recommend return to the ER with any change or worsening symptoms. - Differential Diagnosis UTI, dysmenorrhea, kidney stone Critical care attestation.: If time is entered above; I have spent that time in minutes in the direct care of this critically ill patient, excluding procedure time. ED Disposition Clinical Impression: Acute cystitis Qualifiers: Hematuria presence: with hematuria Qualified Code(s): N30.01 - Acute cystitis with hematuria Disposition: HOME / SELF CARE / HOMELESS Is pt being admited?: No Condition: Stable Instructions: Abdominal Pain (ED) Prescriptions: Nitrofurantoin [place]/M-Cryst [Macrobid CAP] 100 mg PO Q12HR #14 capsule Ibuprofen [Motrin 800 MG tab] 800 mg PO Q8HR PRN #30 tablet PRN Reason: Pain , Severe (7-10) Referrals: [facility] [Provider Group] - 3-5 Days Forms: Work/School Release Form(ED) Time of Disposition: 07:53
[2022-01-31 07:03] LABS: Bilirubin,Urine NEG (Negative); Blood,Urine LG (Negative); Color,Urine Amber (Yellow); Mucus,Urine FEW /HPF
[2022-01-31 07:04] LABS: HCG Qualitative,Urine Negative (Negative)
== END 2022-01-31 08:39 | disposition home or self-care (01) ==
LOC: ED 04:58
DX: N30.00 Acute cystitis without hematuria (principal)
CPT/HCPCS: 81001; 81025; 87086; 99283